=== PATIENT | female | born 1950 | race Caucasian/White ===

== ENCOUNTER 2020-04-04 14:45 | Inpatient (IN) | payer MEDICARE, SELFPAY ==
[2020-04-03 17:05] LABS: Absolute Neutrophil Count 3.6 X10^3/uL (2.0-7.7); Basophil# 0.02 X10^3/uL; Basophil% 0.3 % (0-1); Eosinophil# 0.23 X10^3/uL; Eosinophils% 3.6 % (0-5); Hematocrit 38.6 % (37-47); Hemoglobin 12.1 g/dL (12.0-15.0); Mean Corp Hgb Conc 31.3 g/dL (32-36); Mean Corpuscular Hgb 30.8 pg (27.0-32.0); Mean Corpuscular Volume 98.2 fL (81-99); Mean Platelet Vol. 8.3 fl (6.2-12.0); Monocyte# 0.61 X10^3/uL; Monocyte% 9.5 % (0-10); NRBC Flagged by Analyzer 0 % (0-5); Neutrophil # 3.57 X10^3/uL (2.7-7.7); Neutrophil % 55.3 % (47-70); Platelet Count 430 K/mm3 (150-450); RBC Distribution Width CV 12.8 % (11.6-14.6); RBC Distribution Width SD 46.1 fl (35.1-43.9); Red Blood Count 3.93 M/mm3 (4.2-5.4); White Blood Count 6.5 K/mm3 (4.4-11.0)
[2020-04-03 17:19] LABS: Erythrocyte Sedimentation Rate 34 mm/hr (0-30)
[2020-04-04] VITALS (12 sets, daily range): BP systolic 125–168; BP diastolic 69–96; PULSE 76–117; RESP 16; TEMP 36.3–37.5; O2SAT 94–100; BMI 27.9
[2020-04-04 11:11] LABS: Bedside Glucose 108 mg/dL (70-110)
[2020-04-04] MEDS: Lactated Ringers 1,000 ML 100 ML IV ×3 (11:27→15:35)
[2020-04-04] MEDS: Acetaminophen 500 MG Tablet 1000 MG PO ×2 (11:28→22:09)
[2020-04-04] MEDS: Gabapentin 600 MG Tablet PO (11:28)
[2020-04-04 12:13] LABS: Absolute Lymphocyte Count 1.58 X10^3/uL (0.83-4.51); Absolute Neutrophil Count 3.1 X10^3/uL (2.0-7.7); Basophil# 0.02 X10^3/uL; Basophil% 0.4 % (0-1); Eosinophil# 0.19 X10^3/uL; Eosinophils% 3.6 % (0-5); Hematocrit 38.9 % (37-47); Lymphocyte # 1.58 X10^3/ul (4.0); Lymphocyte % 29.9 % (19-41); Mean Corp Hgb Conc 30.8 g/dL (32-36); Mean Corpuscular Hgb 30.9 pg (27.0-32.0); Mean Corpuscular Volume 100.3 fL (81-99); Mean Platelet Vol. 8.3 fl (6.2-12.0); Monocyte# 0.41 X10^3/uL; Monocyte% 7.8 % (0-10); NRBC Flagged by Analyzer 0 % (0-5); Neutrophil # 3.07 X10^3/uL (2.7-7.7); Neutrophil % 57.9 % (47-70); Platelet Count 396 K/mm3 (150-450); RBC Distribution Width CV 12.9 % (11.6-14.6); RBC Distribution Width SD 47.4 fl (35.1-43.9); Red Blood Count 3.88 M/mm3 (4.2-5.4); White Blood Count 5.3 K/mm3 (4.4-11.0)
--- NOTE | 2020-04-04 12:13 | EKG12_ITS ---
Test Reason : PRE OP Blood Pressure : / mmHG Vent. Rate : 076 BPM Atrial Rate : 076 BPM P-R Int : 166 ms QRS Dur : 072 ms QT Int : 404 ms P-R-T Axes : 035 010 052 degrees QTc Int : 454 ms Sinus rhythm with Premature atrial complexes Otherwise normal ECG Confirmed by ELLEN CHAN, LEONID ([id number]), news copy editor MATT SORIA ([id number]) on 04/09/2020 10:28:34 AM Referred By: Vadim Chan Confirmed By:LEONID HUGHES MD
[2020-04-04 12:38] LABS: Anion Gap 4 (5-15); BUN 20 mg/dL (7-18); BUN/Creat Ratio 17.7 RATIO (10-20); Calcium,Total 9.3 mg/dL (8.5-10.1); Chloride 103 mmol/L (98-107); Creatinine, Serum 1.13 mg/dL (0.55-1.02); EST Glomerular Filtration Rate 51 mL/min (>60); Est Glom Filt Rate - Afr Amer 61 mL/min (>60); Estimated Creatinine Clearance 43.37 ml/min; Glucose 103 mg/dL (74-106); Magnesium 2.6 mg/dL (1.6-2.6); Potassium 3.6 mmol/L (3.5-5.1); Sodium Level 139 mmol/L (136-145)
[2020-04-04 12:57] LABS: Hemoglobin A1c 5.8 % (3.8-5.6)
[2020-04-04] MEDS: Cefazolin 2 GM in 0.9% Normal Saline 100 ML IV (13:34)
[2020-04-04] MEDS: Vancomycin IV 1,000 MG/200 ML BAG 200 MG IV (13:34)
--- NOTE | 2020-04-04 14:47 | RAD_ITS ---
STUDY: X-RAY - PELVIS AND LEFT HIP REASON FOR EXAM: Female, 69 years old. Post op hip revision. TECHNIQUE: 2 views of the pelvis and hip. COMPARISON: None. FINDINGS: There is a non-specific bowel gas pattern. Normal visualized soft tissue structures. Normal bilateral iliac wings, sacroiliac joints and visualized sacrum. Normal bilateral superior and inferior pubic rami. Normal pubic symphysis. Normal bilateral ischial tuberosities. Status post femoral head replacement. The standard hardware remains located without periprosthetic fracture. Normal postoperative soft tissue changes. RAD/Hip Min 2 Views (Portable) IMPRESSION: Status post left hip arthroplasty with no untoward bone, joint or hardware findings. Electronically Signed: Sachi Land MD at 16:32 EDT , Service support ,
--- NOTE | 2020-04-04 14:49 | PCM.OPRPT ---
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 Sinus tract debridement left hip Description of Surgical Findings:: Complete synovectomy was performed. There were 2 sinus tracts that were excised in 1 large ellipse. The superficial area communicated deep with a large seroma. small business consultant: Dayami Salmeron Type of Anesthesia:: General Anesthesiologist: Helio Johns Special Medications: TXA 1 g at incision, 1 g at closure. 2 g Ancef and 1 g vancomycin after cultures were obtained. Specimen's removed: 4 separate specimens were sent to microbiology. 3 deep from the joint and 1 superficial from the sinus tract. Estimated Blood Loss (mL): 300 mL Fluids Replaced: 1400 mL crystalloid Description of Procedure: Brief history/operative indications: 69-year-old female who had a hip hemiarthroplasty about 4 weeks ago. 4 days ago she noted increasing pain. Yesterday she presented the office with increased drainage which had purulence. Cultures were taken showing staph aureus. At that time based on the draining sinus we elected to bring her back to the operating room. Risks and benefits of this procedure were discussed the patient including but antibiotics, DVTs, PEs, nervous damage, the risk of anesthesia. Ultimately we discussed complete removal implants and placement of antibiotic spacer versus retained well fixed implants and removal of the femoral head with debridement of the sinus tract. At this time patient did wish to proceed with this procedure. Considering the timing of the symptoms and duration since surgery we agreed it is appropriate treatment plan. Procedure: On the date of procedure the patient's l hip was marked in the preoperative area. Patient was then taken back to the operating room where anesthesia assumed control of the C-spine and airway and administered anesthetic. Patient was transferred to the operating table and placed in the lateral decubitus position with the affected hip up. The patient was secured in the bed with the lateral positioners and leg lengths were checked. The L lower extremity was then prepped out in a sterile fashion using chlorhexidine while the surgeon scrubbed. Upon reentering the room the L lower extremity was draped in the standard orthopedic fashion and the incision was marked. A timeout was called and everyone agreed upon the side, the site, the procedure be performed, antibiotics given, and patient's identity. At this time incision was made through skin, subcutaneous tissue, and fat down to fascia. And incising the skin we did make an ellipse around the 2 sinus tracts. The sinus tracts were carefully dissected out. The initially seemed like they were tracking superficially however as we extended the incision it was very clearly tracked down to a large seroma which had breached the previous fascial repair. Once we had fully incised the fascia a Charley retractor was placed. The soft tissue previous repair was no longer stable. We had a direct view into the joint at this time. There was a large synovial lining area secondary to the seroma. This was carefully debrided using a Perez and rondure. This included the at risk skin edges. Synovial lined tissue from the sinus tract with subtenons tissue fat and fascia involved. We were careful to protect neurovascular structures. The synovium was was sent for culture a more superficial and a more deep specimen was used. Once the synovectomy was completed the retractors were then placed inside the capsule. And the remainder of the synovectomy was completed superiorly and inferiorly. We then dislocated the joint. A bone tamp was used to remove the femoral head. Once this was done we are able to complete the anterior synovectomy. The joint was explored. The membrane from within the femoral head component was taken and sent for culture as well. At this time the wound was copiously irrigated out 2 L of normal saline. We stopped after 2 L of normal saline and put a dilute Betadine solution in the wound for 3 minutes followed by a Irricept lavage followed another liter of normal saline. Once this completed the trunnion was exposed the previous head and neck were stable. Because of this we use the same size implants. They were opened on the back table trunnion was cleaned they were impacted into place. Once was done the hip was reduced. Stability was checked. Hip was stable 9 degrees flexion with 30 degrees internal rotation. There was also minimal shuck. At this time we commenced with closure. Closure was then done using #1 Vicryl to close the fascia using interrupted for the length of the fascia after re-creating a distinct fascial layer and then running a #1 Vicryl as well. In the deep fatty layer #1 Vicryl [id number] sutures were used. A 2-0 Vicryl interrupted sutures were used to close the subcutaneous skin. 2-0 nylon suture in an interrupted vertical mattress fashion followed by close approximation of the skin with a 3 oh VueLock suture were used for final skin closure. A sterile dressing was placed. Patient was awakened by anesthesia and transferred to the [facility]. Patient was then transferred to the PACU for recovery. Postoperative plan: We will consult infectious disease. Patient will be weightbearing as tolerated. 3 months of posterior hip precautions. Aspirin 81 mg twice daily for DVT prophylaxis. Grafts/Implants Used: Leslie Unitrax cobalt chromium femoral head 45 mm, -4 mm sleeve - Complications No intraoperative complications - Admit VTE Documentation VTE Present on Admission: No VTE Mechan Device Prophylaxis: SCD's, Thigh High JAYSON Hose VTE Pharm Prophylaxis ordered?: Yes
--- NOTE | 2020-04-04 15:19 | CON.PCM_ITS ---
Problem List (1) Prosthetic joint infection of left hip Status: Acute Reason for Consult: L hip PJI Consulted by: Dr. Chan History of Present Illness: The patient is a 69 year old F with L hip hemiarthroplasty about a month ago, had been doing fine until about 4-5 days ago, developed pain, swelling, and purulent/bloody drainage from L hip incision. Pain about 5/10, worse with walking. No fever. No recent abx. Saw ortho, wound cx taken, taken to OR today with Dr. Chan for debridement and revision. Now in PACU, sleepy, pain controlled. Full ROS performed and neg except as noted above. - Medical History Surgical History: reviewed Allergies/Adverse Reactions: Allergies No Known Allergies Allergy (Verified 04/04/20 10:40) Home Medications: Ambulatory Orders Medication Instructions Recorded Celecoxib [Celebrex] 200 mg PO BID 04/04/20 Diazepam 2 mg PO DAILY 04/04/20 Diazepam [Valium] 5 mg PO QHS 04/04/20 Duloxetine HCl 60 mg PO QHS 04/04/20 Famotidine 20 mg PO BID 04/04/20 Gabapentin 800 mg BID 04/04/20 Lubiprostone [Amitiza] 24 mcg PO BID PRN 04/04/20 Metformin HCl 500 mg PO DAILY 04/04/20 Omeprazole 40 mg DAILY 04/04/20 Zolpidem Tartrate [Ambien] 10 mg PO QHS 04/04/20 - Social History Tobacco Use: non-smoker Vital Signs Temp Pulse Resp BP Pulse Ox 99.5 F H 76 16 156/93 H 94 04/04/20 11:30 04/04/20 11:30 04/04/20 11:30 04/04/20 11:30 04/04/20 11:30 Oxygen Delivery Method Room Air Weight: 78.6 kg Body Mass Index (BMI) 27.9 Microbiology Past 72 Hours 04/03/20 16:23 Gram Stain - Final Wound - Hip Wound Culture - Preliminary Staphylococcus aureus Laboratory Tests Past 24 Hrs 04/03/20 04/03/20 04/04/20 16:23 16:23 12:00 WBC 6.5 RBC 3.93 L Hgb 12.1 Hct 38.6 MCV 98.2 MCH 30.8 MCHC 31.3 L RDW Std Deviation 46.1 H RDW Coeff of Safia 12.8 Plt Count 430 MPV 8.3 Immature Gran % (Auto) 0.300 Neut % (Auto) 55.3 Lymph % (Auto) 31.0 [place] % (Auto) 9.5 Eos % (Auto) 3.6 Baso % (Auto) 0.3 Absolute Neuts (auto) 3.6 Absolute Lymphs (auto) 2.00 Nucleated RBC % 0 ESR 34 H Sodium 139 Potassium 3.6 Chloride 103 Carbon Dioxide 32.0 Anion Gap 4 L BUN 20 H Creatinine 1.13 H Estim Creat Clear Calc 43.37 Est GFR (MDRD) Af Amer 61 Est GFR (MDRD) Non-Af 51 L BUN/Creatinine Ratio 17.7 Glucose 103 Hemoglobin A1c Calcium 9.3 Magnesium 2.6 C-React Prot Ext Range 5.00 H 04/04/20 04/04/20 12:00 12:00 WBC 5.3 RBC 3.88 L Hgb 12.0 Hct 38.9 MCV 100.3 H MCH 30.9 MCHC 30.8 L RDW Std Deviation 47.4 H RDW Coeff of Safia 12.9 Plt Count 396 MPV 8.3 Immature Gran % (Auto) 0.400 Neut % (Auto) 57.9 Lymph % (Auto) 29.9 [place] % (Auto) 7.8 Eos % (Auto) 3.6 Baso % (Auto) 0.4 Absolute Neuts (auto) 3.1 Absolute Lymphs (auto) 1.58 Nucleated RBC % 0 ESR Sodium Potassium Chloride Carbon Dioxide Anion Gap BUN Creatinine Estim Creat Clear Calc Est GFR (MDRD) Af Amer Est GFR (MDRD) Non-Af BUN/Creatinine Ratio Glucose Hemoglobin A1c 5.8 H Calcium Magnesium C-React Prot Ext Range - Other Studies Radiology: [] reviewed Other Studies: [] Route of nutrition/ use of supplements: [] Nutritional Intake: [] IV Site: [] Jacome Catheter: [] - Physical Exam General: Alert, Oriented x3, Cooperative, No apparent distress HEENT: Atraumatic, PERRLA, EOMI Neck: Supple, No Nodes Lungs: Clear to auscultation, Normal air movement Cardiovascular: Regular rate, Regular Rhythm, Murmur Abdomen: Soft, Non Tender, Non-Distended Extremities: No edema Skin: Incision - L hip bandaged IV Site: Peripheral, without redness Musculoskeletal: No Tenderness to Palpation of Joints or Extremities Neurological: Cranial nerves II-XII grossly intact - Assessment/Plan Antibiotics: [] Assessment/Plan: [] staph aureus L hip PJI - now s/p OR 03/05/[address] Chan for synovectomy and revision of femoral head component. Surg cx pending. Will cover with vanc/ceft riaxone for now. Plan will be for picc and discharge on iv abx. Likely will benefit from addition of rifampin prior to discharge for biofilm penetration. Will follow, thank you
--- NOTE | 2020-04-04 15:28 | PCM.RX.CS ---
Consult Pharmacy has been consulted to manage selected antiobiotic: Vancomycin Type of Consult: New start Suspected Infection: Skin/Soft tissue Prior Doses of Antibiotics Received/Current Regimen: Received 1gm iv preop. Labs: Sodium 139 mmol/L (136-145) 04/04/20 12:00 Potassium 3.6 mmol/L (3.5-5.1) 04/04/20 12:00 Chloride 103 mmol/L (98-107) 04/04/20 12:00 Carbon Dioxide 32.0 mmol/L (21.0-32.0) 04/04/20 12:00 Anion Gap 4 (5-15) L 04/04/20 12:00 BUN 20 mg/dL (7-18) H 04/04/20 12:00 Creatinine 1.13 mg/dL (0.55-1.02) H 04/04/20 12:00 Est GFR (MDRD) Af Amer 61 mL/min (>60) 04/04/20 12:00 Est GFR (MDRD) Non-Af 51 mL/min (>60) L 04/04/20 12:00 BUN/Creatinine Ratio 17.7 RATIO (-20) 04/04/20 12:00 Glucose 103 mg/dL (74-106) 04/04/20 12:00 Microbiology: Microbiology 04/03/20 16:23 Wound - Hip Gram Stain - Final 04/03/20 16:23 Wound - Hip Wound Culture - Preliminary Staphylococcus aureus Weight used for dosin.6 kg Estimated Creatinine Clearance: 43ml/min Goal Trough: 15-20 mcg/mL Pharmacy Plan for Drug Dosing: Will begin 500mg iv q12h per protocol. Trough level ordered for 04.06.20. Pharmacy Service will continue to monitor and adjust dosing as required. Follow-Up Labs: Trough Vancomycin - 04.06.20 @0030
[2020-04-04] MEDS: Scopolamine 1mg/72hr Patch 1 PATCH TD (15:36)
[2020-04-04 16:45] LABS: Bedside Glucose 167 mg/dL (70-110)
[2020-04-04] MEDS: proMETHazine 25 MG/ML Syringe 12.5 MG IM (17:30)
[2020-04-04] MEDS: 0.9% Saline Lock 10 ML Syringe IV (17:31)
[2020-04-04] MEDS: Aspirin 81 MG TAB.CHEW PO (17:37)
--- NOTE | 2020-04-04 18:01 | PN_ITS ---
<Luciano Geiger - Last Filed: 04/04/20 18:01> 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) Reason for Visit: post op left hip PJI debridement, revision hemiarthroplasty Subjective: This is a 69 yo female with pmhx of recent left hip hemiarthroplasty about a month prior hx osteoarthritis, anxiety, DMt2, who underwent a debridement and revision of the hemiarthroplasty as it has develoepd drainage and injection around the prosthesis. A culture from 04/03 shows 3+ Staph auereus. The patient tolerated the procedure well, since coming out of sedation has had some nausea. She was given zofran, phenergan, scopalamine patch and since has had resolution of the nausea. She is lethargic and groggy at this time but denies any nausea. No fever/chills. Minimal pain to the left hip. No SOB or cough. Vitals/I&O's: Vital Signs Temp Pulse Resp BP Pulse Ox 97.8 F 113 H 16 166/88 H 94 04/04/20 17:10 04/04/20 17:10 04/04/20 17:10 04/04/20 17:10 04/04/20 17:10 Oxygen Flow Rate (L/min) 2 Oxygen Delivery Method Nasal Cannula Weight: 173 lb 4.533 oz Body Mass Index (BMI) 27.9 Finger Stick Blood Glucose 167 Intake and Output for Last 24 Hours 04/02/20 04/03/20 04/04/20 23:59 23:59 23:59 Intake Total 2844.5 / 2844.5 Output Total 450 / 450 Balance 2394.5 / 2394.5 General: Alert, Oriented x3, Cooperative, Lethargic HEENT: Atraumatic, PERRLA, EOMI, Normocephalic Neck: Supple, No JVD, Negative Carotid Bruits Lungs: Clear to auscultation, Normal air movement Cardiovascular: Regular rate, No murmurs Abdomen: Bowel Sounds Present, Soft, Non Tender Extremities: No edema, Capillary Refill Less than 3 Seconds Skin: No rashes, No breakdown Musculoskeletal: No Tenderness to Palpation of Joints or Extremities, - - distal pms intact. Neurological: Cranial nerves II-XII grossly intact Psych/Mental Status: Normal Affect, Appropriate, Alert and oriented to time, place, person, mood and affect Microbiology Past 72 Hours 04/03/20 16:23 Wound - Hip Gram Stain - Final 04/03/20 16:23 Wound - Hip Wound Culture - Preliminary Staphylococcus aureus Laboratory Results 04/03/20 16:23: C-React Prot Ext Range 5.00 H 04/04/20 11:06: POC Glucose 108 04/04/20 12:00: Sodium 139, Potassium 3.6, Chloride 103, Carbon Dioxide 32.0, Anion Gap 4 L, BUN 20 H, Creatinine 1.13 H, Estim Creat Clear Calc 43.37, Est GFR (MDRD) Af Amer 61, Est GFR (MDRD) Non-Af 51 L, BUN/Creatinine Ratio 17.7, Glucose 103, Calcium 9.3, Magnesium 2.6 04/04/20 12:00: Hemoglobin A1c 5.8 H 04/04/20 12:00: WBC 5.3, RBC 3.88 L, Hgb 12.0, Hct 38.9, MCV 100.3 H, MCH 30.9, MCHC 30.8 L, RDW Std Deviation 47.4 H, RDW Coeff of Safia 12.9, Plt Count 396, MPV 8.3, Immature Gran % (Auto) 0.400, Neut % (Auto) 57.9, Lymph % (Auto) 29.9, [place] % (Auto) 7.8, Eos % (Auto) 3.6, Baso % (Auto) 0.4, Absolute Neuts (auto) 3.1, Absolute Lymphs (auto) 1.58, Nucleated RBC % 0 04/04/20 16:40: POC Glucose 167 H Current Medications Acetaminophen (Tylenol) 1,000 mg PO Q8 [facility] Aspirin (Aspirin, Baby) 81 mg PO BIDCM [facility] Last Admin: 04/04/20 17:37 Dose: 81 mg Documented by: Enteral Nutritional Formula (Ensure Surgery) 237 ml PO TIDCM [facility] Last Admin: 04/04/20 17:33 Dose: Not Given Documented by: Famotidine (Pepcid) 20 mg PO DAILY [facility] Lactated Ringer's () 1,000 mls @ 100 mls/hr IV .Q10H [facility] Last Infusion: 04/04/20 17:41 Dose: 0 mls/hr Documented by: Vancomycin IV Pharmacy to Dose (1 ea/ Sodium Chloride) 500 mls @ 250 mls/hr IV PRN PRN; Protocol PRN Reason: Rx to Dose Ceftriaxone Sodium 2 gm/ (Sodium Chloride) 50 mls @ 100 mls/hr IV Q24 [facility] Last Admin: 04/04/20 17:35 Dose: 100 mls/hr Documented by: Vancomycin HCl () 500 mg in 100 mls @ 100 mls/hr IV Q12H [facility] Sodium Chloride () 250 mls @ 15 mls/hr IV .[id number] PRN PRN Reason: Saline Flush Sodium Chloride () 250 mls @ 15 mls/hr IV .[id number] PRN PRN Reason: Additional IVPB Infusion Influenza Virus Vaccine Quadrival (Flucelvax /Fluzone ) 0.5 ml IM .ONCE ONE Stop: 04/05/20 10:01 Insulin Human Lispro (Humalog Kwikpen (Bkc)) 1 - 6 unit SC Q4H PRN PRN; Protocol PRN Reason: BG>/= 180, SEE PROTOCOL Morphine Sulfate () 2 - 4 mg IV Q2H PRN PRN PRN Reason: Pain Score 4-10/10 Morphine Sulfate () 2 - 4 mg IV Q2H PRN PRN PRN Reason: PAIN 4-10/10 Ondansetron HCl (Zofran) 4 mg IV Q8H PRN PRN PRN Reason: NAUSEA Oxycodone HCl (Oxyir) 5 - 10 mg PO Q4H PRN PRN PRN Reason: Pain Score 4-10/10 Promethazine HCl (Phenergan) 12.5 mg IM Q6H PRN PRN; Protocol PRN Reason: NAUSEA/VOMITING Last Admin: 04/04/20 17:30 Dose: 12.5 mg Documented by: Senna/Docusate Sodium (Senokot-S, Taylor-Colace) 2 tablet PO BID [facility] Sodium Chloride () 10 - 40 ml IV UD PRN PRN Reason: SALINE FLUSH Last Admin: 04/04/20 17:31 Dose: 10 ml Documented by: STROKE Vital Signs/Narrative: Vital Signs Temp Pulse Resp BP Pulse Ox 04/04/20 17:10 97.8 F 113 H 16 166/88 H 94 04/04/20 16:15 97.4 F L 99 16 134/91 H 98 04/04/20 16:00 107 H 16 155/92 H 98 04/04/20 15:45 110 H 16 136/84 H 100 04/04/20 15:30 108 H 16 153/96 H 100 04/04/20 15:15 106 H 16 168/87 H 100 04/04/20 15:00 117 H 16 168/92 H 100 04/04/20 14:57 97.4 F L 117 H 16 168/87 H 100 Medical Necessity - Tobacco Use Smoking Status: Never smoker Assessment/Plan All Active Problems 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 PJI s/p debridement and hemiarthroplasty revision (left hip) - POD#0. Ortho is Dr. Chan. Dr. Perez is consulted for infection management. Pt had post op nausea which is now resolved. CBC/BMP in AM. IV abx regimen currently includes Vancomycin and Rocephin. Per ID pt will need PICC at DC and may be started on rifampin for biofilm penetrance. 2. DMt2 - SSI, hold metformin. last A1C 5.8, well controlled for her age. 3. Suspect CKDIII - per prior labs recent BUN 20 , Cr 1.13, GFR 51 CrCl 43. BMP in AM. DVT ppx: asa BID per ortho This patient was seen by Luciano Geiger PA-C under the supervision of Dr. Benitez. <Marely Benitez - Last Filed: 04/04/20 21:36> Vitals/I&O's: Vital Signs Temp Pulse Resp BP Pulse Ox 97.8 F 89 16 125/69 H 97 04/04/20 18:41 04/04/20 18:41 04/04/20 19:10 04/04/20 18:41 04/04/20 19:10 Oxygen Flow Rate (L/min) 4 Oxygen Delivery Method Nasal Cannula Weight: 78.6 kg Body Mass Index (BMI) 27.9 Finger Stick Blood Glucose 167 Intake and Output for Last 24 Hours 04/02/20 04/03/20 04/04/20 23:59 23:59 23:59 Intake Total 2894.5 / 2894.5 Output Total 450 / 450 Balance 2444.5 / 2444.5 Microbiology Past 72 Hours 04/03/20 16:23 Wound - Hip Gram Stain - Final 04/03/20 16:23 Wound - Hip Wound Culture - Preliminary Staphylococcus aureus Laboratory Results 04/03/20 16:23: C-React Prot Ext Range 5.00 H 04/04/20 11:06: POC Glucose 108 04/04/20 12:00: Sodium 139, Potassium 3.6, Chloride 103, Carbon Dioxide 32.0, Anion Gap 4 L, BUN 20 H, Creatinine 1.13 H, Estim Creat Clear Calc 43.37, Est GFR (MDRD) Af Amer 61, Est GFR (MDRD) Non-Af 51 L, BUN/Creatinine Ratio 17.7, Glucose 103, Calcium 9.3, Magnesium 2.6 04/04/20 12:00: Hemoglobin A1c 5.8 H 04/04/20 12:00: WBC 5.3, RBC 3.88 L, Hgb 12.0, Hct 38.9, MCV 100.3 H, MCH 30.9, MCHC 30.8 L, RDW Std Deviation 47.4 H, RDW Coeff of Safia 12.9, Plt Count 396, MPV 8.3, Immature Gran % (Auto) 0.400, Neut % (Auto) 57.9, Lymph % (Auto) 29.9, [place] % (Auto) 7.8, Eos % (Auto) 3.6, Baso % (Auto) 0.4, Absolute Neuts (auto) 3.1, Absolute Lymphs (auto) 1.58, Nucleated RBC % 0 04/04/20 16:40: POC Glucose 167 H Current Medications Acetaminophen (Tylenol) 1,000 mg PO Q8 [facility] Aspirin (Aspirin, Baby) 81 mg PO BIDCM [facility] Last Admin: 04/04/20 17:37 Dose: 81 mg Documented by: Dextrose (D50w Syringe) 0 gm IV X1 PRN; Protocol PRN Reason: Hypoglycemia Enteral Nutritional Formula (Ensure Surgery) 237 ml PO TIDCM [facility] Last Admin: 04/04/20 17:33 Dose: Not Given Documented by: Famotidine (Pepcid) 20 mg PO DAILY [facility] Glucagon () 1 mg IM .X1 PRN PRN Reason: Hypoglycemia Lactated Ringer's () 1,000 mls @ 100 mls/hr IV .Q10H [facility] Last Infusion: 04/04/20 18:07 Dose: 100 mls/hr Documented by: Vancomycin IV Pharmacy to Dose (1 ea/ Sodium Chloride) 500 mls @ 250 mls/hr IV PRN PRN; Protocol PRN Reason: Rx to Dose Ceftriaxone Sodium 2 gm/ (Sodium Chloride) 50 mls @ 100 mls/hr IV Q24 [facility] Last Infusion: 04/04/20 18:07 Dose: Infused Documented by: Vancomycin HCl () 500 mg in 100 mls @ 100 mls/hr IV Q12H [facility] Sodium Chloride () 250 mls @ 15 mls/hr IV .[id number] PRN PRN Reason: Saline Flush Sodium Chloride () 250 mls @ 15 mls/hr IV .[id number] PRN PRN Reason: Additional IVPB Infusion Influenza Virus Vaccine Quadrival (Flucelvax /Fluzone ) 0.5 ml IM .ONCE ONE Stop: 04/05/20 10:01 Insulin Human Lispro (Humalog Kwikpen (Bkc)) 0 unit SC ACHS [facility]; Protocol Morphine Sulfate () 2 - 4 mg IV Q2H PRN PRN PRN Reason: Pain Score 4-10/10 Morphine Sulfate () 2 - 4 mg IV Q2H PRN PRN PRN Reason: PAIN 4-10/10 Ondansetron HCl (Zofran) 4 mg IV Q8H PRN PRN PRN Reason: NAUSEA Oxycodone HCl (Oxyir) 5 - 10 mg PO Q4H PRN PRN PRN Reason: Pain Score 4-10/10 Promethazine HCl (Phenergan) 12.5 mg IM Q6H PRN PRN; Protocol PRN Reason: NAUSEA/VOMITING Last Admin: 04/04/20 17:30 Dose: 12.5 mg Documented by: Senna/Docusate Sodium (Senokot-S, Taylor-Colace) 2 tablet PO BID [facility] Sodium Chloride () 10 - 40 ml IV UD PRN PRN Reason: SALINE FLUSH Last Admin: 04/04/20 17:31 Dose: 10 ml Documented by: STROKE Vital Signs/Narrative: Vital Signs Temp Pulse Resp BP Pulse Ox 04/04/20 19:10 16 97 04/04/20 18:41 97.8 F 89 16 125/69 H 95 Assessment/Plan This patient was seen in conjunction with ARIANA Dwyer. I have independently interviewed and examined the patient and reviewed pertinent historical, laboratory, and other data. Please refer to ARIANA Dwyer note for his patient's presentation, findings, and recommendations. I have reviewed and his note and concur with his documentation 69-year-old female has medical history of osteoarthritis status post left hip hemiarthroplasty a month ago, type II DM, anxiety who developed drainage from the left hip surgical site. Blood cultures done on 04/03/20 showed staph aureus/3. Patient was admitted for elective I&D and revision of the hemiarthroplasty. Infectious disease had been consulted and have started patient on vancomycin and ceftriaxone. Patient was seen in the immediate postop period. Her pain is controlled. She had episodes of vomiting after surgery. She has been medicated. She denied any chest pain or dizziness or palpitations or fever. Physical Exam: Gen: Appears comfortable, not pale, not jaundiced CVS:HS I +II, regular, no murmurs RESP: Clinically clear to auscultation GI: BS present and normal, soft, nontender, no palpable organs EXT:No edema, intact dressing and ice pack over the left hip ASSESSMENT: 1. Postop day #0 status post I&D, debridement and revision of left hip hemiarthroplasty 2. Acute prosthetic joint infection 3. Type II DM 4. Possible CKD stage III 5. Osteoarthritis Plan: Continue on IV antibiotics, Follow-up with intraoperative wound cultures Wound care, PT and OT per Primary orthopedics team Continue with aspirin for DVT prophylaxis per orthopedic team Inpatient E&M: [id number] Subs Hosp L2
[2020-04-04] MEDS: Senna/Docusate Sodium 1 Tablet 2 TABLET PO (22:09)
[2020-04-04 22:55] LABS: Bedside Glucose 177 mg/dL (70-110)
[2020-04-05] MEDS: Vancomycin IV 500 MG/100 ML BAG 100 MG IV ×2 (01:47→13:21)
[2020-04-05 04:00] VITALS: BP 117/71; PULSE 82; RESP 16; TEMP 37; O2SAT 98
[2020-04-05] MEDS: Acetaminophen 500 MG Tablet 1000 MG PO ×3 (05:26→22:31)
[2020-04-05 06:22] LABS: Hematocrit 32.1 % (37-47); Hemoglobin 10.1 g/dL (12.0-15.0); Mean Corp Hgb Conc 31.5 g/dL (32-36); Mean Corpuscular Hgb 31.7 pg (27.0-32.0); Mean Corpuscular Volume 100.6 fL (81-99); Mean Platelet Vol. 8.4 fl (6.2-12.0); Platelet Count 355 K/mm3 (150-450); RBC Distribution Width CV 12.7 % (11.6-14.6); RBC Distribution Width SD 46.8 fl (35.1-43.9); Red Blood Count 3.19 M/mm3 (4.2-5.4); White Blood Count 8.2 K/mm3 (4.4-11.0)
[2020-04-05] MEDS: Insulin Lispro 100 UNIT/ML INSULN.PEN SC ×2 (06:33→11:31)
[2020-04-05 06:46] LABS: Anion Gap 3 (5-15); BUN 21 mg/dL (7-18); BUN/Creat Ratio 19.8 RATIO (10-20); Calcium,Total 8.7 mg/dL (8.5-10.1); Chloride 104 mmol/L (98-107); Creatinine, Serum 1.06 mg/dL (0.55-1.02); EST Glomerular Filtration Rate 54 mL/min (>60); Est Glom Filt Rate - Afr Amer 66 mL/min (>60); Estimated Creatinine Clearance 46.23 ml/min; Glucose 137 mg/dL (74-106); Potassium 4.3 mmol/L (3.5-5.1); Sodium Level 139 mmol/L (136-145)
[2020-04-05 06:51] LABS: Bedside Glucose 167 mg/dL (70-110)
[2020-04-05 07:00] VITALS: O2SAT 92
[2020-04-05 10:17] VITALS: BP 112/73; PULSE 77; RESP 18; TEMP 36.7; O2SAT 100
[2020-04-05] MEDS: Ensure Surgery 237 ML LIQUID PO ×3 (10:24→16:31)
[2020-04-05] MEDS: Senna/Docusate Sodium 1 Tablet 2 TABLET PO ×2 (10:24→22:31)
[2020-04-05] MEDS: Aspirin 81 MG TAB.CHEW PO ×2 (10:25→16:30)
[2020-04-05] MEDS: Famotidine 20 MG Tablet PO (10:25)
[2020-04-05] MEDS: oxyCODONE 5 MG Tablet PO ×2 (10:39→19:22)
[2020-04-05] MEDS: 0.9% Saline Lock 10 ML Syringe IV ×2 (10:40→13:28)
--- NOTE | 2020-04-05 11:05 | CASEMGMT ---
GUALBERTO RAMSEY Face to Face with patient for initial transition planning/care coordination assessment. RN CM introduced self and role at [facility]. Patient sitting in chair, alert and oriented. Patient willing to participate in assessment and is able to answer all questions appropriately. Care providers, pharmacy, and demographics verified. Patient wishes to discharge home, with HHC again through [facility]. Patient states she has no further needs or concerns at this time. CM to follow for discharge planning needs that may arise. PCP: [facility] Specialists: Dustin Sheikh Pharmacy: [facility] Insurance: [facility] Prescription Benefit: yes Living Will/HPOA: none LNOK: Living Arrangements: Patient lives with in a 1 story home with 1 step to enter the home. Patient states she is independent at home. Transportation: self/ DME/HHC: Patient states she has shower chair, cane, walker, rollator, and grab bars at home. Patient states she was getting HHC for therapy through [facility]. Will monitor for need for IV ATB at discharge pending infectious disease consult. Disposition Plan: Patient to discharge home with HHC, family support, and follow-up plans in place. Lolly MURPHY, RN, CM
--- NOTE | 2020-04-05 11:26 | PCM.PN.HOSP ---
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 Nausea resolved. Pt much more alert today. No SOB/cough. Pt resting in chair at bedside NAD. Vitals/I&O's: Vital Signs Temp Pulse Resp BP Pulse Ox 98.1 F 77 18 112/73 100 04/05/20 10:17 04/05/20 10:17 04/05/20 10:17 04/05/20 10:17 04/05/20 10:17 Oxygen Flow Rate (L/min) 2 Oxygen Delivery Method Nasal Cannula Weight: 173 lb 4.533 oz Body Mass Index (BMI) 27.9 Finger Stick Blood Glucose 167 Intake and Output for Last 24 Hours 04/03/20 04/04/20 04/05/20 23:59 23:59 23:59 Intake Total 2994.5 / 2994.5 1090.00 / 1090.00 Output Total 950 / 950 400 / 400 Balance 2044.5 / 2044.5 690.00 / 690.00 General: Alert, Oriented x3, Cooperative HEENT: Atraumatic, PERRLA, EOMI, Normocephalic Neck: Supple, No JVD, Negative Carotid Bruits Lungs: Clear to auscultation, Normal air movement Cardiovascular: Regular rate, No murmurs Abdomen: Bowel Sounds Present, Soft, Non Tender Extremities: No edema, Capillary Refill Less than 3 Seconds Skin: No rashes, No breakdown Musculoskeletal: No Tenderness to Palpation of Joints or Extremities Neurological: Cranial nerves II-XII grossly intact Psych/Mental Status: Normal Affect, Appropriate, Alert and oriented to time, place, person, mood and affect Microbiology Past 72 Hours 04/04/20 Unknown Tissue - Hip Wound Culture - Preliminary No growth-Final to follow 04/04/20 Unknown Tissue - Hip Wound Culture - Preliminary No growth-Final to follow 04/04/20 Unknown Tissue - Hip Wound Culture - Preliminary Gram positive organism 04/04/20 Unknown Tissue - Hip Wound Culture - Preliminary Staphylococcus aureus 04/03/20 16:23 Wound - Hip Gram Stain - Final 04/03/20 16:23 Wound - Hip Wound Culture - Final Staphylococcus aureus Laboratory Results 04/03/20 16:23: C-React Prot Ext Range 5.00 H 04/04/20 12:00: Sodium 139, Potassium 3.6, Chloride 103, Carbon Dioxide 32.0, Anion Gap 4 L, BUN 20 H, Creatinine 1.13 H, Estim Creat Clear Calc 43.37, Est GFR (MDRD) Af Amer 61, Est GFR (MDRD) Non-Af 51 L, BUN/Creatinine Ratio 17.7, Glucose 103, Calcium 9.3, Magnesium 2.6 04/04/20 12:00: Hemoglobin A1c 5.8 H 04/04/20 12:00: WBC 5.3, RBC 3.88 L, Hgb 12.0, Hct 38.9, MCV 100.3 H, MCH 30.9, MCHC 30.8 L, RDW Std Deviation 47.4 H, RDW Coeff of Safia 12.9, Plt Count 396, MPV 8.3, Immature Gran % (Auto) 0.400, Neut % (Auto) 57.9, Lymph % (Auto) 29.9, [place] % (Auto) 7.8, Eos % (Auto) 3.6, Baso % (Auto) 0.4, Absolute Neuts (auto) 3.1, Absolute Lymphs (auto) 1.58, Nucleated RBC % 0 04/04/20 16:40: POC Glucose 167 H 04/04/20 22:01: POC Glucose 177 H 04/05/20 05:52: WBC 8.2, RBC 3.19 L, Hgb 10.1 L, Hct 32.1 L, MCV 100.6 H, MCH 31.7, MCHC 31.5 L, RDW Std Deviation 46.8 H, RDW Coeff of Safia 12.7, Plt Count 355, MPV 8.4 04/05/20 05:52: Sodium 139, Potassium 4.3, Chloride 104, Carbon Dioxide 32.0, Anion Gap 3 L, BUN 21 H, Creatinine 1.06 H, Estim Creat Clear Calc 46.23, Est GFR (MDRD) Af Amer 66, Est GFR (MDRD) Non-Af 54 L, BUN/Creatinine Ratio 19.8, Glucose 137 H, Calcium 8.7 04/05/20 06:27: POC Glucose 167 H Current Medications Acetaminophen (Tylenol) 1,000 mg PO Q8 [facility] Last Admin: 04/05/20 05:26 Dose: 1,000 mg Documented by: Aspirin (Aspirin, Baby) 81 mg PO BIDCM [facility] Last Admin: 04/05/20 10:25 Dose: 81 mg Documented by: Dextrose (D50w Syringe) 0 gm IV X1 PRN; Protocol PRN Reason: Hypoglycemia Enteral Nutritional Formula (Ensure Surgery) 237 ml PO TIDCM [facility] Last Admin: 04/05/20 10:24 Dose: 237 ml Documented by: Famotidine (Pepcid) 20 mg PO DAILY [facility] Last Admin: 04/05/20 10:25 Dose: 20 mg Documented by: Glucagon () 1 mg IM .X1 PRN PRN Reason: Hypoglycemia Vancomycin IV Pharmacy to Dose (1 ea/ Sodium Chloride) 500 mls @ 250 mls/hr IV PRN PRN; Protocol PRN Reason: Rx to Dose Ceftriaxone Sodium 2 gm/ (Sodium Chloride) 50 mls @ 100 mls/hr IV Q24 [facility] Last Admin: 04/05/20 10:25 Dose: 100 mls/hr Documented by: Vancomycin HCl () 500 mg in 100 mls @ 100 mls/hr IV Q12H [facility] Last Infusion: 04/05/20 02:47 Dose: Infused Documented by: Sodium Chloride () 250 mls @ 15 mls/hr IV .[id number] PRN PRN Reason: Saline Flush Sodium Chloride () 250 mls @ 15 mls/hr IV .[id number] PRN PRN Reason: Additional IVPB Infusion Insulin Human Lispro (Humalog Kwikpen (Bkc)) 0 unit SC ACHS [facility]; Protocol Last Admin: 04/05/20 06:33 Dose: 1 units Documented by: Morphine Sulfate () 2 - 4 mg IV Q2H PRN PRN PRN Reason: Pain Score 4-10/10 Morphine Sulfate () 2 - 4 mg IV Q2H PRN PRN PRN Reason: PAIN 4-10/10 Ondansetron HCl (Zofran) 4 mg IV Q8H PRN PRN PRN Reason: NAUSEA Oxycodone HCl (Oxyir) 5 - 10 mg PO Q4H PRN PRN PRN Reason: Pain Score 4-10/10 Last Admin: 04/05/20 10:39 Dose: 5 mg Documented by: Promethazine HCl (Phenergan) 12.5 mg IM Q6H PRN PRN; Protocol PRN Reason: NAUSEA/VOMITING Last Admin: 04/04/20 17:30 Dose: 12.5 mg Documented by: Senna/Docusate Sodium (Senokot-S, Taylor-Colace) 2 tablet PO BID [facility] Last Admin: 04/05/20 10:24 Dose: 2 tablet Documented by: Sodium Chloride () 10 - 40 ml IV UD PRN PRN Reason: SALINE FLUSH Last Admin: 04/05/20 10:40 Dose: 10 ml Documented by: STROKE Vital Signs/Narrative: Vital Signs Temp Pulse Resp BP Pulse Ox 04/05/20 10:17 98.1 F 77 18 112/73 100 Medical Necessity - Tobacco Use Smoking Status: Never smoker Assessment/Plan All Active Problems 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 Ortho is Dr. Chan. Dr. Perez is consulted for infection management. Pt had post op nausea which is now resolved. CBC/BMP in AM. IV abx regimen currently includes Vancomycin and Rocephin. Per ID pt will need PICC at DC and may be started on rifampin for biofilm penetrance. -No fever/leukocytosis. -Prior Staph cultures showing pansensitive. Repeat surgical cxs pending. 2. DMt2 - SSI, hold metformin. last A1C 5.8, well controlled for her age. 3. Suspect CKDIII - renal function stable. per prior labs recent BUN 20 , Cr 1.13, GFR 51 CrCl 43. DVT ppx: asa BID per ortho This patient was seen by Luciano Geiger PA-C under the supervision of Dr. Fabian <Jamie Fabian - Last Filed: 04/05/20 11:55> Vitals/I&O's: Vital Signs Temp Pulse Resp BP Pulse Ox 36.7 C 77 18 112/73 100 04/05/20 10:17 04/05/20 10:17 04/05/20 10:17 04/05/20 10:17 04/05/20 10:17 Oxygen Flow Rate (L/min) 2 Oxygen Delivery Method Nasal Cannula Weight: 78.6 kg Body Mass Index (BMI) 27.9 Finger Stick Blood Glucose 167 Intake and Output for Last 24 Hours 04/03/20 04/04/20 04/05/20 23:59 23:59 23:59 Intake Total 2994.5 / 2994.5 1140.00 / 1140.00 Output Total 950 / 950 400 / 400 Balance 2044.5 / 2044.5 740.00 / 740.00 General: Alert, Cooperative HEENT: Atraumatic, Normocephalic Lungs: Clear to auscultation, Normal air movement Cardiovascular: Regular rate, No murmurs Abdomen: Bowel Sounds Present, Soft, Non Tender Extremities: No edema, Capillary Refill Less than 3 Seconds Psych/Mental Status: Normal Affect, Appropriate Microbiology Past 72 Hours 04/04/20 Unknown Tissue - Hip Wound Culture - Preliminary No growth-Final to follow 04/04/20 Unknown Tissue - Hip Wound Culture - Preliminary No growth-Final to follow 04/04/20 Unknown Tissue - Hip Wound Culture - Preliminary Gram positive organism 04/04/20 Unknown Tissue - Hip Wound Culture - Preliminary Staphylococcus aureus 04/03/20 16:23 Wound - Hip Gram Stain - Final 04/03/20 16:23 Wound - Hip Wound Culture - Final Staphylococcus aureus Laboratory Results 04/03/20 16:23: C-React Prot Ext Range 5.00 H 04/04/20 12:00: Sodium 139, Potassium 3.6, Chloride 103, Carbon Dioxide 32.0, Anion Gap 4 L, BUN 20 H, Creatinine 1.13 H, Estim Creat Clear Calc 43.37, Est GFR (MDRD) Af Amer 61, Est GFR (MDRD) Non-Af 51 L, BUN/Creatinine Ratio 17.7, Glucose 103, Calcium 9.3, Magnesium 2.6 04/04/20 12:00: Hemoglobin A1c 5.8 H 04/04/20 12:00: WBC 5.3, RBC 3.88 L, Hgb 12.0, Hct 38.9, MCV 100.3 H, MCH 30.9, MCHC 30.8 L, RDW Std Deviation 47.4 H, RDW Coeff of Safia 12.9, Plt Count 396, MPV 8.3, Immature Gran % (Auto) 0.400, Neut % (Auto) 57.9, Lymph % (Auto) 29.9, [place] % (Auto) 7.8, Eos % (Auto) 3.6, Baso % (Auto) 0.4, Absolute Neuts (auto) 3.1, Absolute Lymphs (auto) 1.58, Nucleated RBC % 0 04/04/20 16:40: POC Glucose 167 H 04/04/20 22:01: POC Glucose 177 H 04/05/20 05:52: WBC 8.2, RBC 3.19 L, Hgb 10.1 L, Hct 32.1 L, MCV 100.6 H, MCH 31.7, MCHC 31.5 L, RDW Std Deviation 46.8 H, RDW Coeff of Safia 12.7, Plt Count 355, MPV 8.4 04/05/20 05:52: Sodium 139, Potassium 4.3, Chloride 104, Carbon Dioxide 32.0, Anion Gap 3 L, BUN 21 H, Creatinine 1.06 H, Estim Creat Clear Calc 46.23, Est GFR (MDRD) Af Amer 66, Est GFR (MDRD) Non-Af 54 L, BUN/Creatinine Ratio 19.8, Glucose 137 H, Calcium 8.7 04/05/20 06:27: POC Glucose 167 H Current Medications Acetaminophen (Tylenol) 1,000 mg PO Q8 [facility] Last Admin: 04/05/20 05:26 Dose: 1,000 mg Documented by: Aspirin (Aspirin, Baby) 81 mg PO BIDCM [facility] Last Admin: 04/05/20 10:25 Dose: 81 mg Documented by: Dextrose (D50w Syringe) 0 gm IV X1 PRN; Protocol PRN Reason: Hypoglycemia Enteral Nutritional Formula (Ensure Surgery) 237 ml PO TIDCM [facility] Last Admin: 04/05/20 10:24 Dose: 237 ml Documented by: Famotidine (Pepcid) 20 mg PO DAILY [facility] Last Admin: 04/05/20 10:25 Dose: 20 mg Documented by: Glucagon () 1 mg IM .X1 PRN PRN Reason: Hypoglycemia Vancomycin IV Pharmacy to Dose (1 ea/ Sodium Chloride) 500 mls @ 250 mls/hr IV PRN PRN; Protocol PRN Reason: Rx to Dose Ceftriaxone Sodium 2 gm/ (Sodium Chloride) 50 mls @ 100 mls/hr IV Q24 [facility] Last Infusion: 04/05/20 10:55 Dose: Infused Documented by: Vancomycin HCl () 500 mg in 100 mls @ 100 mls/hr IV Q12H [facility] Last Infusion: 04/05/20 02:47 Dose: Infused Documented by: Sodium Chloride () 250 mls @ 15 mls/hr IV .[id number] PRN PRN Reason: Saline Flush Last Admin: 04/05/20 10:55 Dose: 15 mls/hr Documented by: Sodium Chloride () 250 mls @ 15 mls/hr IV .[id number] PRN PRN Reason: Additional IVPB Infusion Insulin Human Lispro (Humalog Kwikpen (Bkc)) 0 unit SC ACHS [facility]; Protocol Last Admin: 04/05/20 11:31 Dose: 1 units Documented by: Morphine Sulfate () 2 - 4 mg IV Q2H PRN PRN PRN Reason: Pain Score 4-10/10 Morphine Sulfate () 2 - 4 mg IV Q2H PRN PRN PRN Reason: PAIN 4-10/10 Ondansetron HCl (Zofran) 4 mg IV Q8H PRN PRN PRN Reason: NAUSEA Oxycodone HCl (Oxyir) 5 - 10 mg PO Q4H PRN PRN PRN Reason: Pain Score 4-10/10 Last Admin: 04/05/20 10:39 Dose: 5 mg Documented by: Promethazine HCl (Phenergan) 12.5 mg IM Q6H PRN PRN; Protocol PRN Reason: NAUSEA/VOMITING Last Admin: 04/04/20 17:30 Dose: 12.5 mg Documented by: Senna/Docusate Sodium (Senokot-S, Taylor-Colace) 2 tablet PO BID [facility] Last Admin: 04/05/20 10:24 Dose: 2 tablet Documented by: Sodium Chloride () 10 - 40 ml IV UD PRN PRN Reason: SALINE FLUSH Last Admin: 04/05/20 10:40 Dose: 10 ml Documented by: STROKE Vital Signs/Narrative: Vital Signs Temp Pulse Resp BP Pulse Ox 04/05/20 10:17 36.7 C 77 18 112/73 100 Assessment/Plan Patient seen and examined independently. Data reviewed. I agree with the above note by the physician licensed loan officer assistant. 1. Prosthetic joint infection: Status post debridements. Follow-up cultures. Infectious disease following. Currently on vancomycin and ceftriaxone. Discussed with the patient that ultimately will have to wait on the culture results and then insurance approval for likely long-term IV antibiotics. Inpatient E&M: [id number] Subs Hosp L2
[2020-04-05 11:50] LABS: Bedside Glucose 197 mg/dL (70-110)
--- NOTE | 2020-04-05 13:36 | PN.ORTHO_ITS ---
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 Breathing at 93% with 2 L nasal cannula. Reports minimal pain. No fevers overnight. Initial culture showing pansensitive staph. Gram-positive organism with 1 deep culture with staph positive for the sinus tract cultures. Objective: Left hip postop radiograph show stable well aligned left hip hemiarthroplasty. - Physical Exam Vitals/I&O's: Vital Signs Temp Pulse Resp BP Pulse Ox 98.1 F 77 18 112/73 100 04/05/20 10:17 04/05/20 10:17 04/05/20 10:17 04/05/20 10:17 04/05/20 10:17 Oxygen Flow Rate (L/min) 2 Oxygen Delivery Method Nasal Cannula Weight: 173 lb 4.533 oz Body Mass Index (BMI) 27.9 Finger Stick Blood Glucose 167 Intake and Output for Last 24 Hours 04/03/20 04/04/20 04/05/20 23:59 23:59 23:59 Intake Total 2994.5 / 2994.5 1195.67 / 1195.67 Output Total 950 / 950 400 / 400 Balance 2044.5 / 2044.5 795.67 / 795.67 General: Alert, Oriented x3, Cooperative HEENT: Atraumatic Neck: No JVD Extremities: - - LLE: Dressing is clean dry and intact Sensations intact to light touch saphenous, sural, superficial peroneal, deep peroneal, and tibial distributions Motors intact EHL, DF, PF calves are soft and supple Microbiology Past 72 Hours 04/04/20 Unknown Tissue - Hip Wound Culture - Preliminary No growth-Final to follow 04/04/20 Unknown Tissue - Hip Wound Culture - Preliminary No growth-Final to follow 04/04/20 Unknown Tissue - Hip Wound Culture - Preliminary Gram positive organism 04/04/20 Unknown Tissue - Hip Wound Culture - Preliminary Staphylococcus aureus 04/03/20 16:23 Wound - Hip Gram Stain - Final 04/03/20 16:23 Wound - Hip Wound Culture - Final Staphylococcus aureus Laboratory Results 04/04/20 16:40: POC Glucose 167 H 04/04/20 22:01: POC Glucose 177 H 04/05/20 05:52: WBC 8.2, RBC 3.19 L, Hgb 10.1 L, Hct 32.1 L, MCV 100.6 H, MCH 31.7, MCHC 31.5 L, RDW Std Deviation 46.8 H, RDW Coeff of Safia 12.7, Plt Count 355, MPV 8.4 04/05/20 05:52: Sodium 139, Potassium 4.3, Chloride 104, Carbon Dioxide 32.0, Anion Gap 3 L, BUN 21 H, Creatinine 1.06 H, Estim Creat Clear Calc 46.23, Est GFR (MDRD) Af Amer 66, Est GFR (MDRD) Non-Af 54 L, BUN/Creatinine Ratio 19.8, Glucose 137 H, Calcium 8.7 04/05/20 06:27: POC Glucose 167 H 04/05/20 11:27: POC Glucose 197 H Current Medications Acetaminophen (Tylenol) 1,000 mg PO Q8 [facility] Last Admin: 04/05/20 13:23 Dose: 1,000 mg Documented by: Aspirin (Aspirin, Baby) 81 mg PO BIDCM [facility] Last Admin: 04/05/20 10:25 Dose: 81 mg Documented by: Dextrose (D50w Syringe) 0 gm IV X1 PRN; Protocol PRN Reason: Hypoglycemia Enteral Nutritional Formula (Ensure Surgery) 237 ml PO TIDCM [facility] Last Admin: 04/05/20 13:21 Dose: 237 ml Documented by: Famotidine (Pepcid) 20 mg PO DAILY [facility] Last Admin: 04/05/20 10:25 Dose: 20 mg Documented by: Glucagon () 1 mg IM .X1 PRN PRN Reason: Hypoglycemia Vancomycin IV Pharmacy to Dose (1 ea/ Sodium Chloride) 500 mls @ 250 mls/hr IV PRN PRN; Protocol PRN Reason: Rx to Dose Ceftriaxone Sodium 2 gm/ (Sodium Chloride) 50 mls @ 100 mls/hr IV Q24 [facility] Last Infusion: 04/05/20 10:55 Dose: Infused Documented by: Vancomycin HCl () 500 mg in 100 mls @ 100 mls/hr IV Q12H [facility] Last Infusion: 04/05/20 13:31 Dose: 0 mls/hr Documented by: Sodium Chloride () 250 mls @ 15 mls/hr IV .[id number] PRN PRN Reason: Saline Flush Last Infusion: 04/05/20 13:31 Dose: 0 mls/hr Documented by: Sodium Chloride () 250 mls @ 15 mls/hr IV .[id number] PRN PRN Reason: Additional IVPB Infusion Insulin Human Lispro (Humalog Kwikpen (Bkc)) 0 unit SC ACHS [facility]; Protocol Last Admin: 04/05/20 11:31 Dose: 1 units Documented by: Morphine Sulfate () 2 - 4 mg IV Q2H PRN PRN PRN Reason: Pain Score 4-10/10 Morphine Sulfate () 2 - 4 mg IV Q2H PRN PRN PRN Reason: PAIN 4-10/10 Ondansetron HCl (Zofran) 4 mg IV Q8H PRN PRN PRN Reason: NAUSEA Oxycodone HCl (Oxyir) 5 - 10 mg PO Q4H PRN PRN PRN Reason: Pain Score 4-10/10 Last Admin: 04/05/20 10:39 Dose: 5 mg Documented by: Promethazine HCl (Phenergan) 12.5 mg IM Q6H PRN PRN; Protocol PRN Reason: NAUSEA/VOMITING Last Admin: 04/04/20 17:30 Dose: 12.5 mg Documented by: Senna/Docusate Sodium (Senokot-S, Taylor-Colace) 2 tablet PO BID [facility] Last Admin: 04/05/20 10:24 Dose: 2 tablet Documented by: Sodium Chloride () 10 - 40 ml IV UD PRN PRN Reason: SALINE FLUSH Last Admin: 04/05/20 13:28 Dose: 20 ml Documented by: Medical Necessity - Tobacco Use Smoking Status: Never smoker Assessment/Plan All Active Problems 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 1. DVT prophylaxis: Aspirin twice daily 2. Therapy: Weightbearing as tolerated, posterior hip precautions for 3 months. 3. Periprosthetic joint infection: Infectious disease on board. Vanco and cefazolin currently being administered. Continue to monitor renal function and thank trough. PICC line ordered today. 4. Pain control: Continue with current regimen pain well controlled 5. Medical management: Appreciate medical management this patient diabetes is stable. Renal disease is stable. 6. Disposition: Plan is for discharge with IV antibiotics. Patient PICC line ordered today. Antibiotics to be determined by infectious disease. We will plan for discharge once approved by insurance. Likely early next week. [facility] Office:
[2020-04-05 16:20] VITALS: BP 121/70; PULSE 74; RESP 20; TEMP 36.9; O2SAT 95
[2020-04-05 16:25] LABS: Bedside Glucose 133 mg/dL (70-110)
--- NOTE | 2020-04-05 16:31 | NURSING ---
Rn from shot hole shooter here to perform PICC line.
[2020-04-05 22:30] VITALS: BP 134/68; PULSE 86; RESP 18; TEMP 37.3; O2SAT 92
[2020-04-05 23:06] LABS: Bedside Glucose 128 mg/dL (70-110)
[2020-04-06] MEDS: Vancomycin IV 500 MG/100 ML BAG 100 MG IV ×2 (00:46→13:30)
[2020-04-06 01:12] LABS: Vancomycin, Trough Level 15.9 ug/mL (5.0-15.0)
[2020-04-06 02:10] VITALS: BP 134/74; PULSE 81; RESP 16; TEMP 36.9; O2SAT 97
--- NOTE | 2020-04-06 02:44 | PCM.RX.CS ---
Consult Pharmacy has been consulted to manage selected antiobiotic: Vancomycin Type of Consult: Follow-up Suspected Infection: Skin/Soft tissue Prior Doses of Antibiotics Received/Current Regimen: Medications Vancomycin HCl () 500 mg in 100 mls @ 100 mls/hr IV Q12H [facility] Last Admin: 04/06/20 00:46 Dose: 100 mls/hr Labs: Sodium 139 mmol/L (136-145) 04/05/20 05:52 Potassium 4.3 mmol/L (3.5-5.1) 04/05/20 05:52 Chloride 104 mmol/L (98-107) 04/05/20 05:52 Carbon Dioxide 32.0 mmol/L (21.0-32.0) 04/05/20 05:52 Anion Gap 3 (5-15) L 04/05/20 05:52 BUN 21 mg/dL (7-18) H 04/05/20 05:52 Creatinine 1.06 mg/dL (0.55-1.02) H 04/05/20 05:52 Est GFR (MDRD) Af Amer 66 mL/min (>60) 04/05/20 05:52 Est GFR (MDRD) Non-Af 54 mL/min (>60) L 04/05/20 05:52 BUN/Creatinine Ratio 19.8 RATIO (-) 04/05/20 05:52 Glucose 137 mg/dL (74-106) H 04/05/20 05:52 Vancomycin Trough 15.9 ug/mL (5.0-15.0) H 04/06/20 00:26 Microbiology: Microbiology 04/04/20 Unknown Tissue - Hip Gram Stain - Final 04/04/20 Unknown Tissue - Hip Wound Culture - Preliminary No growth-Final to follow 04/04/20 Unknown Tissue - Hip Gram Stain - Final 04/04/20 Unknown Tissue - Hip Wound Culture - Preliminary No growth-Final to follow 04/04/20 Unknown Tissue - Hip Gram Stain - Final 04/04/20 Unknown Tissue - Hip Wound Culture - Preliminary Gram positive organism 04/04/20 Unknown Tissue - Hip Gram Stain - Final 04/04/20 Unknown Tissue - Hip Wound Culture - Preliminary Staphylococcus aureus 04/03/20 16:23 Wound - Hip Gram Stain - Final 04/03/20 16:23 Wound - Hip Wound Culture - Final Staphylococcus aureus Weight used for dosin.6 kg Estimated Creatinine Clearance: 46 Goal Trough: 15-20 mcg/mL Pharmacy Plan for Drug Dosing: Vancomycin trough level of 15.9 was within target range of 15-20. Will continue current dosing and re-draw trough 04/09/20. Pharmacy Service will continue to monitor and adjust dosing as required. Follow-Up Labs: Trough Vancomycin Labs to be done on [date and time ordered]: 04/09/20 @[id number]
[2020-04-06 06:46] LABS: Hematocrit 31.4 % (37-47); Hemoglobin 9.5 g/dL (12.0-15.0); Mean Corp Hgb Conc 30.3 g/dL (32-36); Mean Corpuscular Hgb 30.7 pg (27.0-32.0); Mean Corpuscular Volume 101.6 fL (81-99); Mean Platelet Vol. 8.5 fl (6.2-12.0); Platelet Count 360 K/mm3 (150-450); RBC Distribution Width CV 12.9 % (11.6-14.6); RBC Distribution Width SD 48.7 fl (35.1-43.9); Red Blood Count 3.09 M/mm3 (4.2-5.4); White Blood Count 7.3 K/mm3 (4.4-11.0)
[2020-04-06] MEDS: Acetaminophen 500 MG Tablet 1000 MG PO ×3 (06:49→21:52)
[2020-04-06 07:00] VITALS: O2SAT 91
[2020-04-06 07:05] LABS: Bedside Glucose 103 mg/dL (70-110)
[2020-04-06 08:07] VITALS: BP 147/75; PULSE 74; RESP 16; TEMP 36.8; O2SAT 100
[2020-04-06] MEDS: Aspirin 81 MG TAB.CHEW PO ×2 (08:11→17:18)
[2020-04-06] MEDS: Famotidine 20 MG Tablet PO ×2 (08:11→21:52)
[2020-04-06] MEDS: Ensure Surgery 237 ML LIQUID PO ×3 (08:13→17:18)
[2020-04-06] MEDS: 0.9% Saline Lock 10 ML Syringe IV ×2 (11:45→15:08)
[2020-04-06] MEDS: Pantoprazole Sodium 40 MG Tablet PO (11:45)
[2020-04-06] MEDS: oxyCODONE 5 MG Tablet PO (11:51)
[2020-04-06 12:10] LABS: Bedside Glucose 110 mg/dL (70-110)
--- NOTE | 2020-04-06 12:56 | PN_ITS ---
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 She asked to be restarted on her home med ication for GERD including pepcid BID and PPI qd. Some heartburn with intermittent dry cough this AM. No SOB. No chills/fever. No nausea/vomiting/diarrhea. Pain well controlled. Vitals/I&O's: Vital Signs Temp Pulse Resp BP Pulse Ox 98.2 F 74 16 147/75 H 100 04/06/20 08:07 04/06/20 08:07 04/06/20 08:07 04/06/20 08:07 04/06/20 08:07 Oxygen Flow Rate (L/min) 2 Oxygen Delivery Method Room Air Weight: 173 lb 4.533 oz Body Mass Index (BMI) 27.9 Finger Stick Blood Glucose 167 Intake and Output for Last 24 Hours 04/04/20 04/05/20 04/06/20 23:59 23:59 23:59 Intake Total 2994.5 / 2994.5 1703.50 / 2053.50 900 / 900 Output Total 950 / 950 600 / 600 Balance 2044.5 / 2044.5 1103.50 / 1453.50 900 / 900 General: Alert, Oriented x3, Cooperative HEENT: Atraumatic, PERRLA, EOMI, Normocephalic Neck: Supple, No JVD, Negative Carotid Bruits Lungs: Clear to auscultation, Normal air movement Cardiovascular: Regular rate, No murmurs Abdomen: Bowel Sounds Present, Soft, Non Tender Extremities: No edema, Capillary Refill Less than 3 Seconds Skin: No rashes, No breakdown Musculoskeletal: No Tenderness to Palpation of Joints or Extremities Neurological: Cranial nerves II-XII grossly intact Psych/Mental Status: Normal Affect, Appropriate, Alert and oriented to time, place, person, mood and affect Microbiology Past 72 Hours 04/04/20 Unknown Tissue - Hip Gram Stain - Final 04/04/20 Unknown Tissue - Hip Wound Culture - Preliminary Staphylococcus aureus 04/04/20 Unknown Tissue - Hip Gram Stain - Final 04/04/20 Unknown Tissue - Hip Wound Culture - Preliminary Gram Positive Cocci 04/04/20 Unknown Tissue - Hip Gram Stain - Final 04/04/20 Unknown Tissue - Hip Wound Culture - Preliminary Staphylococcus aureus 04/04/20 Unknown Tissue - Hip Gram Stain - Final 04/04/20 Unknown Tissue - Hip Wound Culture - Final Staphylococcus aureus 04/03/20 16:23 Wound - Hip Gram Stain - Final 04/03/20 16:23 Wound - Hip Wound Culture - Final Staphylococcus aureus Laboratory Results 04/05/20 16:19: POC Glucose 133 H 04/05/20 22:28: POC Glucose 128 H 04/06/20 00:26: Vancomycin Trough 15.9 H 04/06/20 05:26: WBC 7.3, RBC 3.09 L, Hgb 9.5 L, Hct 31.4 L, MCV 101.6 H, MCH 30.7, MCHC 30.3 L, RDW Std Deviation 48.7 H, RDW Coeff of Safia 12.9, Plt Count 360, MPV 8.5 04/06/20 06:48: POC Glucose 103 04/06/20 11:48: POC Glucose 110 Current Medications Acetaminophen (Tylenol) 1,000 mg PO Q8 [facility] Last Admin: 04/06/20 06:49 Dose: 1,000 mg Documented by: Aspirin (Aspirin, Baby) 81 mg PO BIDCM [facility] Last Admin: 04/06/20 08:11 Dose: 81 mg Documented by: Dextrose (D50w Syringe) 0 gm IV X1 PRN; Protocol PRN Reason: Hypoglycemia Enteral Nutritional Formula (Ensure Surgery) 237 ml PO TIDCM [facility] Last Admin: 04/06/20 11:51 Dose: 237 ml Documented by: Famotidine (Pepcid) 20 mg PO BID [facility] Glucagon () 1 mg IM .X1 PRN PRN Reason: Hypoglycemia Vancomycin IV Pharmacy to Dose (1 ea/ Sodium Chloride) 500 mls @ 250 mls/hr IV PRN PRN; Protocol PRN Reason: Rx to Dose Ceftriaxone Sodium 2 gm/ (Sodium Chloride) 50 mls @ 100 mls/hr IV Q24 [facility] Last Infusion: 04/06/20 12:15 Dose: Infused Documented by: Vancomycin HCl () 500 mg in 100 mls @ 100 mls/hr IV Q12H [facility] Last Infusion: 04/06/20 02:05 Dose: Infused Documented by: Sodium Chloride () 250 mls @ 15 mls/hr IV .[id number] PRN PRN Reason: Saline Flush Last Infusion: 04/06/20 12:15 Dose: 15 mls/hr Documented by: Sodium Chloride () 250 mls @ 15 mls/hr IV .[id number] PRN PRN Reason: Additional IVPB Infusion Insulin Human Lispro (Humalog Kwikpen (Bkc)) 0 unit SC [facility]; Protocol Last Admin: 04/06/20 11:49 Dose: Not Given Documented by: Morphine Sulfate () 2 - 4 mg IV Q2H PRN PRN PRN Reason: Pain Score 4-10/10 Morphine Sulfate () 2 - 4 mg IV Q2H PRN PRN PRN Reason: PAIN 4-10/10 Ondansetron HCl (Zofran) 4 mg IV Q8H PRN PRN PRN Reason: NAUSEA Oxycodone HCl (Oxyir) 5 - 10 mg PO Q4H PRN PRN PRN Reason: Pain Score 4-10/10 Last Admin: 04/06/20 11:51 Dose: 5 mg Documented by: Pantoprazole Sodium (Protonix) 40 mg PO DAILY [facility] Last Admin: 04/06/20 11:45 Dose: 40 mg Documented by: Promethazine HCl (Phenergan) 12.5 mg IM Q6H PRN PRN; Protocol PRN Reason: NAUSEA/VOMITING Last Admin: 04/04/20 17:30 Dose: 12.5 mg Documented by: Senna/Docusate Sodium (Senokot-S, Taylor-Colace) 2 tablet PO BID [facility] Last Admin: 04/06/20 08:16 Dose: Not Given Documented by: Sodium Chloride () 10 - 40 ml IV UD PRN PRN Reason: SALINE FLUSH Last Admin: 04/06/20 11:45 Dose: 10 ml Documented by: Medical Necessity - Tobacco Use Smoking Status: Never smoker Assessment/Plan All Active Problems 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 Ortho [address] Dr[address] Chan. Dr. Perez is consulted for infection management. IV abx regimen currently includes Vancomycin and Rocephin. Per ID pt may be started on rifampin for biofilm penetrance. Pt has PICC in place. Plans to do IV abx at home. -No fever/leukocytosis. -Prior Staph cultures showing pansensitive. Repeat surgical cxs showing Staph aureus final sensitivity pending. 2. DMt2 - SSI, hold metformin. last A1C 5.8, well controlled for her age. Glucose gradually improving since surgery. 3. Suspect CKDIII - renal function stable. per prior labs recent BUN 20 , Cr 1.13, GFR 51 CrCl 43. 4. GERD - resume BID pepcid + qd PPI. 5. Macrocytic anemia - Hgb12.1-->9.5. Will repeat CBC in AM. Platelets normal. DVT ppx: asa BID per ortho This patient was seen by Luciano Geiger PA-C under the supervision of Dr. Fabian <Jamie Fabian - Last Filed: 04/06/20 13:54> Vitals/I&O's: Vital Signs Temp Pulse Resp BP Pulse Ox 36.8 C 74 16 147/75 H 100 04/06/20 08:07 04/06/20 08:07 04/06/20 08:07 04/06/20 08:07 04/06/20 08:07 Oxygen Flow Rate (L/min) 2 Oxygen Delivery Method Room Air Weight: 78.6 kg Body Mass Index (BMI) 27.9 Finger Stick Blood Glucose 167 Intake and Output for Last 24 Hours 04/04/20 04/05/20 04/06/20 23:59 23:59 23:59 Intake Total 2994.5 / 2994.5 1703.50 / 2053.50 920 / 920 Output Total 950 / 950 600 / 600 Balance 2044.5 / 2044.5 1103.50 / 1453.50 920 / 920 General: Alert, Cooperative HEENT: Atraumatic, Normocephalic Lungs: Clear to auscultation, Normal air movement Cardiovascular: Regular rate, No murmurs Abdomen: Bowel Sounds Present, Non Tender Skin: No rashes, No breakdown Psych/Mental Status: Normal Affect, Appropriate Microbiology Past 72 Hours 04/03/20 16:23 Wound - Hip Gram Stain - Final 04/03/20 16:23 Wound - Hip Wound Culture - Final Staphylococcus aureus 04/03/20 16:23 Wound - Hip Anaerobic Culture - Final No anaerobic bacteria isolated. 04/04/20 Unknown Tissue - Hip Gram Stain - Final 04/04/20 Unknown Tissue - Hip Wound Culture - Preliminary Staphylococcus aureus 04/04/20 Unknown Tissue - Hip Gram Stain - Final 04/04/20 Unknown Tissue - Hip Wound Culture - Preliminary Gram Positive Cocci 04/04/20 Unknown Tissue - Hip Gram Stain - Final 04/04/20 Unknown Tissue - Hip Wound Culture - Preliminary Staphylococcus aureus 04/04/20 Unknown Tissue - Hip Gram Stain - Final 04/04/20 Unknown Tissue - Hip Wound Culture - Final Staphylococcus aureus Laboratory Results 04/05/20 16:19: POC Glucose 133 H 04/05/20 22:28: POC Glucose 128 H 04/06/20 00:26: Vancomycin Trough 15.9 H 04/06/20 05:26: WBC 7.3, RBC 3.09 L, Hgb 9.5 L, Hct 31.4 L, MCV 101.6 H, MCH 30.7, MCHC 30.3 L, RDW Std Deviation 48.7 H, RDW Coeff of Safia 12.9, Plt Count 360, MPV 8.5 04/06/20 06:48: POC Glucose 103 04/06/20 11:48: POC Glucose 110 Current Medications Acetaminophen (Tylenol) 1,000 mg PO Q8 [facility] Last Admin: 04/06/20 13:31 Dose: 1,000 mg Documented by: Aspirin (Aspirin, Baby) 81 mg PO BIDCM [facility] Last Admin: 04/06/20 08:11 Dose: 81 mg Documented by: Dextrose (D50w Syringe) 0 gm IV X1 PRN; Protocol PRN Reason: Hypoglycemia Enteral Nutritional Formula (Ensure Surgery) 237 ml PO TIDCM [facility] Last Admin: 04/06/20 11:51 Dose: 237 ml Documented by: Famotidine (Pepcid) 20 mg PO BID [facility] Glucagon () 1 mg IM .X1 PRN PRN Reason: Hypoglycemia Vancomycin IV Pharmacy to Dose (1 ea/ Sodium Chloride) 500 mls @ 250 mls/hr IV PRN PRN; Protocol PRN Reason: Rx to Dose Ceftriaxone Sodium 2 gm/ (Sodium Chloride) 50 mls @ 100 mls/hr IV Q24 [facility] Last Infusion: 04/06/20 12:15 Dose: Infused Documented by: Vancomycin HCl () 500 mg in 100 mls @ 100 mls/hr IV Q12H [facility] Last Admin: 04/06/20 13:30 Dose: 100 mls/hr Documented by: Sodium Chloride () 250 mls @ 15 mls/hr IV .[id number] PRN PRN Reason: Saline Flush Last Infusion: 04/06/20 13:35 Dose: 0 mls/hr Documented by: Sodium Chloride () 250 mls @ 15 mls/hr IV .[id number] PRN PRN Reason: Additional IVPB Infusion Insulin Human Lispro (Humalog Kwikpen (Bkc)) 0 unit SC ACHS [facility]; Protocol Last Admin: 04/06/20 11:49 Dose: Not Given Documented by: Morphine Sulfate () 2 - 4 mg IV Q2H PRN PRN PRN Reason: Pain Score 4-10/10 Morphine Sulfate () 2 - 4 mg IV Q2H PRN PRN PRN Reason: PAIN 4-10/10 Ondansetron HCl (Zofran) 4 mg IV Q8H PRN PRN PRN Reason: NAUSEA Oxycodone HCl (Oxyir) 5 - 10 mg PO Q4H PRN PRN PRN Reason: Pain Score 4-10/10 Last Admin: 04/06/20 11:51 Dose: 5 mg Documented by: Pantoprazole Sodium (Protonix) 40 mg PO DAILY [facility] Last Admin: 04/06/20 11:45 Dose: 40 mg Documented by: Promethazine HCl (Phenergan) 12.5 mg IM Q6H PRN PRN; Protocol PRN Reason: NAUSEA/VOMITING Last Admin: 04/04/20 17:30 Dose: 12.5 mg Documented by: Senna/Docusate Sodium (Senokot-S, Taylor-Colace) 2 tablet PO BID [facility] Last Admin: 04/06/20 08:16 Dose: Not Given Documented by: Sodium Chloride () 10 - 40 ml IV UD PRN PRN Reason: SALINE FLUSH Last Admin: 04/06/20 11:45 Dose: 10 ml Documented by: Assessment/Plan Patient seen and examined independently. Data reviewed. I agree with the above note by the physician hotel administrative assistant. 1. Prosthetic joint infection: Status post debridements. Follow-up cultures. Infectious disease following. Currently on vancomycin and ceftriaxone. Discussed with the patient that ultimately will have to wait on the culture results and then insurance approval for likely long-term IV antibiotics. Culture growing out S. aureus. Inpatient E&M: [id number] Subs Hosp L2
[2020-04-06 15:15] VITALS: BP 99/76; PULSE 78; RESP 18; TEMP 36.9; O2SAT 99
--- NOTE | 2020-04-06 15:18 | PCM.PN.ORT ---
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 No longer requiring oxygen satting well on room air. Cultures reviewed MSSA. No major issues overnight. Does have significant discomfort with the thigh-high stockings. - Physical Exam Vitals/I&O's: Vital Signs Temp Pulse Resp BP Pulse Ox 98.5 F 78 18 99/76 99 04/06/20 15:15 04/06/20 15:15 04/06/20 15:15 04/06/20 15:15 04/06/20 15:15 Oxygen Flow Rate (L/min) 2 Oxygen Delivery Method Room Air Weight: 173 lb 4.533 oz Body Mass Index (BMI) 27.9 Finger Stick Blood Glucose 167 Intake and Output for Last 24 Hours 04/04/20 04/05/20 04/06/20 23:59 23:59 23:59 Intake Total 2994.5 / 2994.5 1703.50 / 2053.50 1440 / 1440 Output Total 950 / 950 600 / 600 Balance 2044.5 / 2044.5 1103.50 / 1453.50 1440 / 1440 General: Alert, Oriented x3, Cooperative Extremities: - - Left lower extremity: Dressing is clean dry and intact Sensations intact to light touch saphenous, sural, superficial peroneal, deep peroneal, and tibial distributions Motors intact EHL, DF, PF calves are soft and supple Microbiology Past 72 Hours 04/03/20 16:23 Wound - Hip Gram Stain - Final 04/03/20 16:23 Wound - Hip Wound Culture - Final Staphylococcus aureus 04/03/20 16:23 Wound - Hip Anaerobic Culture - Final No anaerobic bacteria isolated. 04/04/20 Unknown Tissue - Hip Gram Stain - Final 04/04/20 Unknown Tissue - Hip Wound Culture - Preliminary Staphylococcus aureus 04/04/20 Unknown Tissue - Hip Gram Stain - Final 04/04/20 Unknown Tissue - Hip Wound Culture - Preliminary Gram Positive Cocci 04/04/20 Unknown Tissue - Hip Gram Stain - Final 04/04/20 Unknown Tissue - Hip Wound Culture - Preliminary Staphylococcus aureus 04/04/20 Unknown Tissue - Hip Gram Stain - Final 04/04/20 Unknown Tissue - Hip Wound Culture - Final Staphylococcus aureus Laboratory Results 04/05/20 16:19: POC Glucose 133 H 04/05/20 22:28: POC Glucose 128 H 04/06/20 00:26: Vancomycin Trough 15.9 H 04/06/20 05:26: WBC 7.3, RBC 3.09 L, Hgb 9.5 L, Hct 31.4 L, MCV 101.6 H, MCH 30.7, MCHC 30.3 L, RDW Std Deviation 48.7 H, RDW Coeff of Safia 12.9, Plt Count 360, MPV 8.5 04/06/20 06:48: POC Glucose 103 04/06/20 11:48: POC Glucose 110 Current Medications Acetaminophen (Tylenol) 1,000 mg PO Q8 [facility] Last Admin: 04/06/20 13:31 Dose: 1,000 mg Documented by: Aspirin (Aspirin, Baby) 81 mg PO BIDCM [facility] Last Admin: 04/06/20 08:11 Dose: 81 mg Documented by: Dextrose (D50w Syringe) 0 gm IV X1 PRN; Protocol PRN Reason: Hypoglycemia Enteral Nutritional Formula (Ensure Surgery) 237 ml PO TIDCM [facility] Last Admin: 04/06/20 11:51 Dose: 237 ml Documented by: Famotidine (Pepcid) 20 mg PO BID [facility] Glucagon () 1 mg IM .X1 PRN PRN Reason: Hypoglycemia Vancomycin IV Pharmacy to Dose (1 ea/ Sodium Chloride) 500 mls @ 250 mls/hr IV PRN PRN; Protocol PRN Reason: Rx to Dose Ceftriaxone Sodium 2 gm/ (Sodium Chloride) 50 mls @ 100 mls/hr IV Q24 [facility] Last Infusion: 04/06/20 12:15 Dose: Infused Documented by: Vancomycin HCl () 500 mg in 100 mls @ 100 mls/hr IV Q12H [facility] Last Infusion: 04/06/20 14:53 Dose: Infused Documented by: Sodium Chloride () 250 mls @ 15 mls/hr IV .[id number] PRN PRN Reason: Saline Flush Last Infusion: 04/06/20 15:13 Dose: 15 mls/hr Documented by: Sodium Chloride () 250 mls @ 15 mls/hr IV .[id number] PRN PRN Reason: Additional IVPB Infusion Insulin Human Lispro (Humalog Kwikpen (Bkc)) 0 unit SC ACHS [facility]; Protocol Last Admin: 04/06/20 11:49 Dose: Not Given Documented by: Morphine Sulfate () 2 - 4 mg IV Q2H PRN PRN PRN Reason: Pain Score 4-10/10 Morphine Sulfate () 2 - 4 mg IV Q2H PRN PRN PRN Reason: PAIN 4-10/10 Ondansetron HCl (Zofran) 4 mg IV Q8H PRN PRN PRN Reason: NAUSEA Oxycodone HCl (Oxyir) 5 - 10 mg PO Q4H PRN PRN PRN Reason: Pain Score 4-10/10 Last Admin: 04/06/20 11:51 Dose: 5 mg Documented by: Pantoprazole Sodium (Protonix) 40 mg PO DAILY [facility] Last Admin: 04/06/20 11:45 Dose: 40 mg Documented by: Promethazine HCl (Phenergan) 12.5 mg IM Q6H PRN PRN; Protocol PRN Reason: NAUSEA/VOMITING Last Admin: 04/04/20 17:30 Dose: 12.5 mg Documented by: Senna/Docusate Sodium (Senokot-S, Taylor-Colace) 2 tablet PO BID [facility] Last Admin: 04/06/20 08:16 Dose: Not Given Documented by: Sodium Chloride () 10 - 40 ml IV UD PRN PRN Reason: SALINE FLUSH Last Admin: 04/06/20 15:08 Dose: 10 ml Documented by: Medical Necessity - Tobacco Use Smoking Status: Never smoker Assessment/Plan All Active Problems 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 1. DVT prophylaxis: Aspirin twice daily 2. Therapy: Weightbearing as tolerated, posterior hip precautions for 3 months. 3. Periprosthetic joint infection: Infectious disease on board. Vanco and cefazolin currently being administered. Continue to monitor renal function and vanc trough. PICC line in place. BMP ordered for tomorrow. 4. Pain control: Continue with current regimen pain well controlled 5. Medical management: Appreciate medical management this patient diabetes is stable. Renal disease is stable. Check BMP tomorrow 6. Postoperative anemia: Patient's hemoglobin has dropped to 9.5. Directly related to operative blood loss. stable with no associated symptoms. 7. Disposition: Plan is for discharge with IV antibiotics. Patient PICC line placed. Antibiotics to be determined by infectious disease. We will plan for discharge once approved by insurance. Likely early next week. [facility] Office:
--- NOTE | 2020-04-06 15:23 | PCM.DC.THR ---
Discharge Diet: No Restrictions Discharge Activity: May Not Drive - while taking narcotic pain medications. May shower in (days): 1 - With occlusive dressing on. May begin to shower after dressing removed incision is clean dry and intact. Only if incision is dry and without drainage. Do NOT soak/submerge in tub/pool/shannon/stream/hot tub. May resume sexual activity in: 6-8 weeks Weight Bearing Status: Weight bearing as tolerated Additional Activity Instructions:: Wear elastic stockings for 2 weeks. DO NOT use alcohol with narcotic pain medication. DO NOT make important decisions while taking narcotic medication. If you have problems with taking your medication (rash, itching, nausea, etc.) call the office at once. Call your doctor if your incision/area has: Increased Pain/ Swelling, Increased Redness, Foul Smelling Discharge Call your doctor if you observe: Fever of 101 or Higher Remove Dressing in (days):: 3 - if incision is clean dry and intact may leave the wound open to air and continue showering. If there is continued drainage continue daily dry dressing changes and keep incision clean dry and intact until there is no drainage. Additional Dressing/Incision Instructions:: If incision is clean dry and intact may leave the wound open to air and continue showering. If there is continued drainage continue daily dry dressing changes and keep incision clean dry and intact until there is no drainage. Allergies/Adverse Reactions: Allergies No Known Allergies Allergy (Verified 04/04/20 10:40) Medications to take at Discharge Celecoxib [Celebrex] 200 mg PO BID 04/04/20 Diazepam 2 mg PO DAILY 04/04/20 Diazepam [Valium] 5 mg PO QHS 04/04/20 Duloxetine HCl 60 mg PO QHS 04/04/20 Famotidine 20 mg PO BID 04/04/20 Gabapentin 800 mg BID 04/04/20 Lubiprostone [Amitiza] 24 mcg PO BID PRN 04/04/20 Metformin HCl 500 mg PO DAILY 04/04/20 Omeprazole 40 mg DAILY 04/04/20 Zolpidem Tartrate [Ambien] 10 mg PO QHS 04/04/20 Acetaminophen [Tylenol] 1,000 mg PO Q8 tab 04/06/20 Aspirin [Aspirin, Baby] 81 mg PO BIDCM #60 tab.chew 04/06/20 Ensure Surgery 237 ml PO TIDCM liquid 04/06/20 Famotidine [Pepcid] 20 mg PO BID 04/06/20 Oxycodone [Oxyir] 5 - 10 mg PO Q6H PRN PRN 7 Days #60 tab 04/06/20 Senna/Docusate Sodium [Senokot-S] 2 tab PO BID tab 04/06/20 Ampicillin Sodium/Sulbactam Na [Unasyn 3 gm Vial] 3 gm IV Q8H 53 Days #159 vial 04/07/20 Rifampin 300 mg PO BID 112 Days #56 cap 04/07/20 The following prescriptions were given: Aspirin [Aspirin, Baby] 81 mg PO BIDCM #60 tab.chew Transmission Status: Received by [facility] Oxycodone [Oxyir] 5 - 10 mg PO Q6H PRN PRN 7 Days #60 tab PRN Reason: Pain Score 4-10 Transmission Status: Received by [facility] Rifampin 300 mg PO BID 112 Days #56 cap Transmission Status: Received by [facility] Ampicillin Sodium/Sulbactam Na [Unasyn 3 gm Vial] 3 gm IV Q8H 53 Days #159 vial Prescription Printed Primary Care Physician: Paras Oliva DO [Primary Care Provider] - Test Results: Test results from this visit will be discussed in further detail at your follow-up appointment, if applicable. Please Follow Up With: Shayne Bowden PA-C When: 2 weeks postop Please Follow Up With: Paras Perez MD When: 2 weeks postop
[2020-04-06 21:55] VITALS: BP 154/83; PULSE 89; RESP 18; TEMP 37.1; O2SAT 97
[2020-04-06 22:26] LABS: Bedside Glucose 125 mg/dL (70-110)
[2020-04-06] MEDS: Zolpidem Tartrate 5 MG Tablet PO (22:44)
[2020-04-07 00:21] LABS: Bedside Glucose 104 mg/dL (70-110)
[2020-04-07] MEDS: Zolpidem Tartrate 5 MG Tablet PO ×2 (00:43→21:39)
[2020-04-07] MEDS: Vancomycin IV 500 MG/100 ML BAG 100 MG IV ×2 (00:44→13:35)
[2020-04-07 04:05] VITALS: BP 159/99; PULSE 90; RESP 18; TEMP 36.9; O2SAT 99
[2020-04-07 05:40] LABS: Hematocrit 32.8 % (37-47); Hemoglobin 10.1 g/dL (12.0-15.0); Mean Corp Hgb Conc 30.8 g/dL (32-36); Mean Corpuscular Hgb 30.7 pg (27.0-32.0); Mean Corpuscular Volume 99.7 fL (81-99); Mean Platelet Vol. 8.2 fl (6.2-12.0); Platelet Count 359 K/mm3 (150-450); RBC Distribution Width CV 12.9 % (11.6-14.6); RBC Distribution Width SD 47.6 fl (35.1-43.9); Red Blood Count 3.29 M/mm3 (4.2-5.4); White Blood Count 7.6 K/mm3 (4.4-11.0)
[2020-04-07] MEDS: Acetaminophen 500 MG Tablet 1000 MG PO ×3 (06:43→21:39)
[2020-04-07 07:01] LABS: Bedside Glucose 107 mg/dL (70-110)
[2020-04-07 07:02] VITALS: O2SAT 92
[2020-04-07 09:45] VITALS: BP 175/90; PULSE 91; RESP 16; TEMP 36.5; O2SAT 99
--- NOTE | 2020-04-07 09:56 | CASEMGMT ---
GUALBERTO RAMSEY Note: Patient will need to dc on Home IV antibiotics. Alereon with insurance reviewed with patient. She would like [facility] as she had them prior, and also would like [facility]. Call to [facility] @ [facility] and the earlies they can take patient is Wed am for start of care, so patient would need to stay and receive Tuesday mercy dose prior to discharge. The patient wanted to return home sooner, but GUALBERTO RAMSEY explained she needs to receive IV antibiotics @ [facility] until [facility] can start care. GUALBERTO RAMSEY also called 4 other agencies that either could not provide the care, or could not provide the home healthcare any earlier than [facility]. Patient is aware and agreeable with plan of care. Referral Faxed to: [facility] PH: FX: [phone] [facility] PH: FX: Kassandra STATONN GUALBERTO ACM
[2020-04-07] MEDS: Famotidine 20 MG Tablet PO ×2 (10:05→21:39)
[2020-04-07] MEDS: Aspirin 81 MG TAB.CHEW PO (10:05)
[2020-04-07] MEDS: 0.9% Saline Lock 10 ML Syringe IV ×3 (10:08→13:35)
[2020-04-07] MEDS: Pantoprazole Sodium 40 MG Tablet PO (10:10)
--- NOTE | 2020-04-07 10:35 | CASEMGMT ---
GUALBERTO RAMSEY Note: Patient will need to dc on Home IV antibiotics. Tracab with insurance reviewed with patient. She would like [facility] as she had them prior, and also would like [facility]. Call to [facility] @ [facility] and the earlies they can take patient is Wed am for start of care, so patient would need to stay and receive Tuesday mercy dose prior to discharge. The patient wanted to return home sooner, but GUALBERTO RAMSEY explained she needs to receive IV antibiotics @ [facility] until [facility] can start care. GUALBERTO RAMSEY also called 4 other agencies that either could not provide the care, or could not provide the home healthcare any earlier than [facility]. Patient is aware and agreeable with plan of care. Referral Faxed to: [facility] PH: FX: [phone] [facility] PH: FX: Kassandra STATONN GUALBERTO ACM
--- NOTE | 2020-04-07 10:52 | PN_ITS ---
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) Reason for Visit: Prosthetic joint infection Subjective: Patient is a 69-year-old lady with history of left hip hemiarthroplasty admitted with pain and swelling and purulent discharge from the hip incision and assessment of prosthetic joint infection made admitted to regular nursing floor for further management Objective: GENERAL: cooperative HEENT: Atraumatic; EYES; Anicteric, Normal Conjunctiva NECK; supple, normal thyroid, RESPIRATORY: Diminished to auscultation CARDIOVASCULAR: Regular S1 S2, GI: soft, normoactive bowel sounds, : No Renal angle tenderness; EXTREMITIES: No edema, no clubbing, MUSCULOSKELETAL: no muscle waisting NEURO: Awake; no lateralizing signs. SKIN: No Rash PSYCH; Flat affect Vitals/I&O's: Vital Signs Temp Pulse Resp BP Pulse Ox 98.4 F 90 18 159/99 H 92 04/07/20 04:05 04/07/20 04:05 04/07/20 04:05 04/07/20 04:05 04/07/20 07:02 Oxygen Flow Rate (L/min) 2 Oxygen Delivery Method Room Air Weight: 78.6 kg Body Mass Index (BMI) 27.9 Finger Stick Blood Glucose 167 Intake and Output for Last 24 Hours 04/05/20 04/06/20 04/07/20 23:59 23:59 23:59 Intake Total 1703.50 / 2053.50 1774.25 / 1774.25 300 / 300 Output Total 600 / 600 Balance 1103.50 / 1453.50 1774.25 / 1774.25 300 / 300 Microbiology Past 72 Hours 04/04/20 Unknown Tissue - Hip Gram Stain - Final 04/04/20 Unknown Tissue - Hip Wound Culture - Final Staphylococcus aureus 04/04/20 Unknown Tissue - Hip Gram Stain - Final 04/04/20 Unknown Tissue - Hip Wound Culture - Final Staphylococcus aureus 04/04/20 Unknown Tissue - Hip Gram Stain - Final 04/04/20 Unknown Tissue - Hip Wound Culture - Final Enterococcus faecium 04/03/20 16:23 Wound - Hip Gram Stain - Final 04/03/20 16:23 Wound - Hip Wound Culture - Final Staphylococcus aureus 04/03/20 16:23 Wound - Hip Anaerobic Culture - Final No anaerobic bacteria isolated. 04/04/20 Unknown Tissue - Hip Gram Stain - Final 04/04/20 Unknown Tissue - Hip Wound Culture - Final Staphylococcus aureus Laboratory Results 04/06/20 11:48: POC Glucose 110 04/06/20 17:11: POC Glucose 104 04/06/20 21:51: POC Glucose 125 H 04/07/20 05:34: WBC 7.6, RBC 3.29 L, Hgb 10.1 L, Hct 32.8 L, MCV 99.7 H, MCH 30.7, MCHC 30.8 L, RDW Std Deviation 47.6 H, RDW Coeff of Safia 12.9, Plt Count 359, MPV 8.2 04/07/20 06:43: POC Glucose 107 Current Medications Acetaminophen (Tylenol) 1,000 mg PO Q8 [facility] Last Admin: 04/07/20 06:43 Dose: 1,000 mg Documented by: Aspirin (Aspirin, Baby) 81 mg PO BIDCM [facility] Last Admin: 04/07/20 10:05 Dose: 81 mg Documented by: Dextrose (D50w Syringe) 0 gm IV X1 PRN; Protocol PRN Reason: Hypoglycemia Enteral Nutritional Formula (Ensure Surgery) 237 ml PO TIDCM [facility] Last Admin: 04/07/20 10:07 Dose: Not Given Documented by: Famotidine (Pepcid) 20 mg PO BID [facility] Last Admin: 04/07/20 10:05 Dose: 20 mg Documented by: Glucagon () 1 mg IM .X1 PRN PRN Reason: Hypoglycemia Vancomycin IV Pharmacy to Dose (1 ea/ Sodium Chloride) 500 mls @ 250 mls/hr IV PRN PRN; Protocol PRN Reason: Rx to Dose Ceftriaxone Sodium 2 gm/ (Sodium Chloride) 50 mls @ 100 mls/hr IV Q24 [facility] Last Admin: 04/07/20 10:05 Dose: 100 mls/hr Documented by: Vancomycin HCl () 500 mg in 100 mls @ 100 mls/hr IV Q12H [facility] Last Infusion: 04/07/20 01:55 Dose: Infused Documented by: Sodium Chloride () 250 mls @ 15 mls/hr IV .[id number] PRN PRN Reason: Saline Flush Last Infusion: 04/06/20 17:30 Dose: Infused Documented by: Sodium Chloride () 250 mls @ 15 mls/hr IV .[id number] PRN PRN Reason: Additional IVPB Infusion Insulin Human Lispro (Humalog Kwikpen (Bkc)) 0 unit SC ACHS [facility]; Protocol Last Admin: 04/07/20 06:44 Dose: Not Given Documented by: Morphine Sulfate () 2 - 4 mg IV Q2H PRN PRN PRN Reason: Pain Score 4-10/10 Morphine Sulfate () 2 - 4 mg IV Q2H PRN PRN PRN Reason: PAIN 4-10/10 Ondansetron HCl (Zofran) 4 mg IV Q8H PRN PRN PRN Reason: NAUSEA Oxycodone HCl (Oxyir) 5 - 10 mg PO Q4H PRN PRN PRN Reason: Pain Score 4-10/10 Last Admin: 04/06/20 11:51 Dose: 5 mg Documented by: Pantoprazole Sodium (Protonix) 40 mg PO DAILY [facility] Last Admin: 04/07/20 10:10 Dose: 40 mg Documented by: Promethazine HCl (Phenergan) 12.5 mg IM Q6H PRN PRN; Protocol PRN Reason: NAUSEA/VOMITING Last Admin: 04/04/20 17:30 Dose: 12.5 mg Documented by: Senna/Docusate Sodium (Senokot-S, Taylor-Colace) 2 tablet PO BID [facility] Last Admin: 04/07/20 10:06 Dose: Not Given Documented by: Sodium Chloride () 10 - 40 ml IV UD PRN PRN Reason: SALINE FLUSH Last Admin: 04/07/20 10:08 Dose: 10 ml Documented by: Zolpidem Tartrate (Ambien (Generic)) 5 mg PO QHS [facility] Last Admin: 04/07/20 00:43 Dose: 5 mg Documented by: STROKE Vital Signs/Narrative: Vital Signs Pulse Ox 04/07/20 07:02 92 Medical Necessity - Tobacco Use Smoking Status: Never smoker Assessment/Plan All Active Problems 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 Prosthetic left hip joint infection ?Patient underwent debridement and hemiarthroplasty revision by Dr. Chan on 04/04/2020 cultures obtained came back positive for enterococcus faecium and Staphylococcus aureus patient remains on vancomycin as well as Rocephin 2. Diabetes mellitus type II - patient's oral hypoglycemics held. Placed on Accu-Cheks a.c. and at bedtime and covered with sliding scale insulin 3. GERD ?Patient on Pepcid 4. Anemia - Secondary to chronic disorder and acute blood loss anemia following surgery monitoring H&H and transfuse if patient becomes symptomatic or hemoglobin falls below 7 5. DVT prophylaxis ?As per orthopedic surgery aspirin 325 mg p.o. twice daily Advance planning; did discuss with the patient and family regarding advanced directives as well as CODE STATUS. Did explain the various scenarios involved ( FULL CODE, DNR CCA, DNR CCA with no intubation, and DNR CC and what each meant) patient elected full code with CPR and intubation if indicated. Order was placed. Time spent on discussion 18 minutes. Inpatient E&M: 63965 Subs Hosp L2 Procedures: 09817 Advncd Care Plan 30 Min
[2020-04-07] MEDS: Insulin Lispro 100 UNIT/ML INSULN.PEN SC (11:22)
[2020-04-07 11:46] LABS: Bedside Glucose 162 mg/dL (70-110)
[2020-04-07 13:35] VITALS: BP 159/87; PULSE 90; RESP 16; TEMP 36.6; O2SAT 100
[2020-04-07] MEDS: Ondansetron 4 MG/2 ML Vial IV (13:35)
--- NOTE | 2020-04-07 14:20 | CASEMGMT ---
Addendum entered by Chava Alonso 04/07/20 15:19: Call to [facility], spoke with Maribell- requested to see if [facility] could start tomorrow afternoon. They cannot staff this and start of care has to be Wed @ 8 am. Nurse is aware. Kassandra KAM Addendum entered by Chava Alonso 04/07/20 15:05: Call received from [facility]. Cost for patient will be $30/day after insurance, and they will call patient in room to discuss payment. GUALBERTO RAMSEY let patient and her know of cost per day and that Infusion company will call to room to discuss payment options. They are agreeable to this plan. Kassandra KAM Original Note: GUALBERTO RAMSEY Note: Script for Unasyn Q8hrs received from Dr. Perez. Script faxed to [facility]. Kim Teague Nurse updated on change and that plan is to have patient leave after her evening dose of Unasyn on Tuesday04/07/20. Kassandra KAM
--- NOTE | 2020-04-07 15:42 | CASEMGMT ---
GUALBERTO RAMSEY Note: Call from Cassandra @ [facility]. She stated the cost for infusion is $30/day and patient's is concerned they cannot afford. GUALBERTO RAMSEY spoke with patient re: possible SNF for IV antibiotics-they both declined. GUALBERTO RAMSEY faxed referral to [facility] requesting cost analysis. If they can provide more cost effective, then the patient is willing to use this company. [facility] to return call when case is assigned. Kassandra STATONN RN ACM
--- NOTE | 2020-04-07 15:48 | PCM.PN.ID ---
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) Subjective: Pain ok, some nausea yesterday, no fever - Physical Exam Vitals/I&O's: Vital Signs Temp Pulse Resp BP Pulse Ox 97.7 F L 91 16 175/90 H 99 04/07/20 09:45 04/07/20 09:45 04/07/20 09:45 04/07/20 09:45 04/07/20 09:45 Oxygen Flow Rate (L/min) 2 Oxygen Delivery Method Room Air Weight: 78.6 kg Body Mass Index (BMI) 27.9 Finger Stick Blood Glucose 167 Intake and Output for Last 24 Hours 04/05/20 04/06/20 04/07/20 23:59 23:59 23:59 Intake Total 1703.50 / 2053.50 1774.25 / 1774.25 800 / 800 Output Total 600 / 600 Balance 1103.50 / 1453.50 1774.25 / 1774.25 800 / 800 General: Alert, Cooperative, No apparent distress Lungs: Clear to auscultation, Normal air movement Cardiovascular: Regular rate, Regular Rhythm Abdomen: Soft, Non Tender, Non-Distended Skin: No rashes Microbiology Past 72 Hours 04/04/20 Unknown Tissue - Hip Gram Stain - Final 04/04/20 Unknown Tissue - Hip Wound Culture - Final Staphylococcus aureus 04/04/20 Unknown Tissue - Hip Anaerobic Culture - Preliminary No growth in 48 hours. 04/04/20 Unknown Tissue - Hip Gram Stain - Final 04/04/20 Unknown Tissue - Hip Wound Culture - Final Staphylococcus aureus 04/04/20 Unknown Tissue - Hip Anaerobic Culture - Preliminary No growth in 48 hours. 04/04/20 Unknown Tissue - Hip Gram Stain - Final 04/04/20 Unknown Tissue - Hip Wound Culture - Final Enterococcus faecium 04/04/20 Unknown Tissue - Hip Anaerobic Culture - Preliminary No growth in 48 hours. 04/04/20 Unknown Tissue - Hip Gram Stain - Final 04/04/20 Unknown Tissue - Hip Wound Culture - Final Staphylococcus aureus 04/04/20 Unknown Tissue - Hip Anaerobic Culture - Preliminary No growth in 48 hours. 04/03/20 16:23 Wound - Hip Gram Stain - Final 04/03/20 16:23 Wound - Hip Wound Culture - Final Staphylococcus aureus 04/03/20 16:23 Wound - Hip Anaerobic Culture - Final No anaerobic bacteria isolated. Laboratory Results 04/06/20 17:11: POC Glucose 104 04/06/20 21:51: POC Glucose 125 H 04/07/20 05:34: WBC 7.6, RBC 3.29 L, Hgb 10.1 L, Hct 32.8 L, MCV 99.7 H, MCH 30.7, MCHC 30.8 L, RDW Std Deviation 47.6 H, RDW Coeff of Safia 12.9, Plt Count 359, MPV 8.2 04/07/20 06:43: POC Glucose 107 04/07/20 11:21: POC Glucose 162 H Current Medications Acetaminophen (Tylenol) 1,000 mg PO Q8 [facility] Last Admin: 04/07/20 14:20 Dose: 1,000 mg Documented by: Aspirin (Aspirin, Baby) 81 mg PO BIDCM [facility] Last Admin: 04/07/20 10:05 Dose: 81 mg Documented by: Dextrose (D50w Syringe) 0 gm IV X1 PRN; Protocol PRN Reason: Hypoglycemia Enteral Nutritional Formula (Ensure Surgery) 237 ml PO TIDCM [facility] Last Admin: 04/07/20 11:22 Dose: Not Given Documented by: Famotidine (Pepcid) 20 mg PO BID [facility] Last Admin: 04/07/20 10:05 Dose: 20 mg Documented by: Glucagon () 1 mg IM .X1 PRN PRN Reason: Hypoglycemia Sodium Chloride () 250 mls @ 15 mls/hr IV .[id number] PRN PRN Reason: Saline Flush Last Infusion: 04/06/20 17:30 Dose: Infused Documented by: Sodium Chloride () 250 mls @ 15 mls/hr IV .[id number] PRN PRN Reason: Additional IVPB Infusion Ampicillin Sodium/Sulbactam (Sodium 3 gm/ Sodium Chloride) 112 mls @ 150 mls/hr IV Q8 [facility] Last Admin: 04/07/20 15:15 Dose: 150 mls/hr Documented by: Insulin Human Lispro (Humalog Kwikpen (Bkc)) 0 unit SC ACHS [facility]; Protocol Last Admin: 04/07/20 11:22 Dose: 1 units Documented by: Morphine Sulfate () 2 - 4 mg IV Q2H PRN PRN PRN Reason: Pain Score 4-10/10 Morphine Sulfate () 2 - 4 mg IV Q2H PRN PRN PRN Reason: PAIN 4-10/10 Ondansetron HCl (Zofran) 4 mg IV Q8H PRN PRN PRN Reason: NAUSEA Last Admin: 04/07/20 13:35 Dose: 4 mg Documented by: Oxycodone HCl (Oxyir) 5 - 10 mg PO Q4H PRN PRN PRN Reason: Pain Score 4-10/10 Last Admin: 04/06/20 11:51 Dose: 5 mg Documented by: Pantoprazole Sodium (Protonix) 40 mg PO DAILY [facility] Last Admin: 04/07/20 10:10 Dose: 40 mg Documented by: Promethazine HCl (Phenergan) 12.5 mg IM Q6H PRN PRN; Protocol PRN Reason: NAUSEA/VOMITING Last Admin: 04/04/20 17:30 Dose: 12.5 mg Documented by: Rifampin (Rifadin) 300 mg PO BID [facility] Senna/Docusate Sodium (Senokot-S, Taylor-Colace) 2 tablet PO BID [facility] Last Admin: 04/07/20 10:06 Dose: Not Given Documented by: Sodium Chloride () 10 - 40 ml IV UD PRN PRN Reason: SALINE FLUSH Last Admin: 04/07/20 13:35 Dose: 10 ml Documented by: Zolpidem Tartrate (Ambien (Generic)) 5 mg PO QHS [facility] Last Admin: 04/07/20 00:43 Dose: 5 mg Documented by: Medical Necessity - Tobacco Use Smoking Status: Never smoker Route of nutrition/ use of supplements: [] Nutritional Intake: [] IV Site: [] Jacome Catheter: [] - Assessment/Plan Antibiotics: [] Assessment/Plan: [] MSSA L hip PJI - now s/p OR 03/05/[address] Chan for synovectomy and revision of femoral head component. Surg cx with mssa and single cx with enterococcus. Will narrow abx to unasyn and add rifampin. Plan on 8 week course, stop date 05/30/20. Weekly bmp, cbc, LFT, and esr. Will follow, d/w case maker, wrote rx, ID followup with me in 2 week
--- NOTE | 2020-04-07 15:50 | PN.ORTHO_ITS ---
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 Patient denies chest pain, shortness of breath, calf pain, nausea vomiting. Patient has no other complaints, states she is ready for discharge home Objective: Dressings clean dry intact. Vital signs labs were reviewed noted medical record. There is no erythema surrounding the incision. Patient has good motion of the hip without pain or instability. Neurovascular she is otherwise intact. Patient has no respiratory distress, speaking in full sentences. Negative signs or symptoms of DVT. - Physical Exam Vitals/I&O's: Vital Signs Temp Pulse Resp BP Pulse Ox 97.7 F L 91 16 175/90 H 99 04/07/20 09:45 04/07/20 09:45 04/07/20 09:45 04/07/20 09:45 04/07/20 09:45 Oxygen Flow Rate (L/min) 2 Oxygen Delivery Method Room Air Weight: 78.6 kg Body Mass Index (BMI) 27.9 Finger Stick Blood Glucose 167 Intake and Output for Last 24 Hours 04/05/20 04/06/20 04/07/20 23:59 23:59 23:59 Intake Total 1703.50 / 2053.50 1774.25 / 1774.25 800 / 800 Output Total 600 / 600 Balance 1103.50 / 1453.50 1774.25 / 1774.25 800 / 800 General: Alert, Oriented x3, Cooperative HEENT: PERRLA Oral: Moist Mucosa Neurological: Cranial nerves II-XII grossly intact Psych/Mental Status: Normal Affect, Alert and oriented to time, place, person, mood and affect Microbiology Past 72 Hours 04/04/20 Unknown Tissue - Hip Gram Stain - Final 04/04/20 Unknown Tissue - Hip Wound Culture - Final Staphylococcus aureus 04/04/20 Unknown Tissue - Hip Anaerobic Culture - Preliminary No growth in 48 hours. 04/04/20 Unknown Tissue - Hip Gram Stain - Final 04/04/20 Unknown Tissue - Hip Wound Culture - Final Staphylococcus aureus 04/04/20 Unknown Tissue - Hip Anaerobic Culture - Preliminary No growth in 48 hours. 04/04/20 Unknown Tissue - Hip Gram Stain - Final 04/04/20 Unknown Tissue - Hip Wound Culture - Final Enterococcus faecium 04/04/20 Unknown Tissue - Hip Anaerobic Culture - Preliminary No growth in 48 hours. 04/04/20 Unknown Tissue - Hip Gram Stain - Final 04/04/20 Unknown Tissue - Hip Wound Culture - Final Staphylococcus aureus 04/04/20 Unknown Tissue - Hip Anaerobic Culture - Preliminary No growth in 48 hours. 04/03/20 16:23 Wound - Hip Gram Stain - Final 04/03/20 16:23 Wound - Hip Wound Culture - Final Staphylococcus aureus 04/03/20 16:23 Wound - Hip Anaerobic Culture - Final No anaerobic bacteria isolated. Laboratory Results 04/06/20 17:11: POC Glucose 104 04/06/20 21:51: POC Glucose 125 H 04/07/20 05:34: WBC 7.6, RBC 3.29 L, Hgb 10.1 L, Hct 32.8 L, MCV 99.7 H, MCH 30.7, MCHC 30.8 L, RDW Std Deviation 47.6 H, RDW Coeff of Safia 12.9, Plt Count 359, MPV 8.2 04/07/20 06:43: POC Glucose 107 04/07/20 11:21: POC Glucose 162 H Current Medications Acetaminophen (Tylenol) 1,000 mg PO Q8 [facility] Last Admin: 04/07/20 14:20 Dose: 1,000 mg Documented by: Aspirin (Aspirin, Baby) 81 mg PO BIDCM [facility] Last Admin: 04/07/20 10:05 Dose: 81 mg Documented by: Dextrose (D50w Syringe) 0 gm IV X1 PRN; Protocol PRN Reason: Hypoglycemia Enteral Nutritional Formula (Ensure Surgery) 237 ml PO TIDCM [facility] Last Admin: 04/07/20 11:22 Dose: Not Given Documented by: Famotidine (Pepcid) 20 mg PO BID [facility] Last Admin: 04/07/20 10:05 Dose: 20 mg Documented by: Glucagon () 1 mg IM .X1 PRN PRN Reason: Hypoglycemia Sodium Chloride () 250 mls @ 15 mls/hr IV .[id number] PRN PRN Reason: Saline Flush Last Infusion: 04/06/20 17:30 Dose: Infused Documented by: Sodium Chloride () 250 mls @ 15 mls/hr IV .[id number] PRN PRN Reason: Additional IVPB Infusion Ampicillin Sodium/Sulbactam (Sodium 3 gm/ Sodium Chloride) 112 mls @ 150 mls/hr IV Q8 [facility] Last Admin: 04/07/20 15:15 Dose: 150 mls/hr Documented by: Insulin Human Lispro (Humalog Kwikpen (Bkc)) 0 unit SC ACHS [facility]; Protocol Last Admin: 04/07/20 11:22 Dose: 1 units Documented by: Morphine Sulfate () 2 - 4 mg IV Q2H PRN PRN PRN Reason: Pain Score 4-10/10 Morphine Sulfate () 2 - 4 mg IV Q2H PRN PRN PRN Reason: PAIN 4-10/10 Ondansetron HCl (Zofran) 4 mg IV Q8H PRN PRN PRN Reason: NAUSEA Last Admin: 04/07/20 13:35 Dose: 4 mg Documented by: Oxycodone HCl (Oxyir) 5 - 10 mg PO Q4H PRN PRN PRN Reason: Pain Score 4-10/10 Last Admin: 04/06/20 11:51 Dose: 5 mg Documented by: Pantoprazole Sodium (Protonix) 40 mg PO DAILY [facility] Last Admin: 04/07/20 10:10 Dose: 40 mg Documented by: Promethazine HCl (Phenergan) 12.5 mg IM Q6H PRN PRN; Protocol PRN Reason: NAUSEA/VOMITING Last Admin: 04/04/20 17:30 Dose: 12.5 mg Documented by: Rifampin (Rifadin) 300 mg PO BID [facility] Senna/Docusate Sodium (Senokot-S, Taylor-Colace) 2 tablet PO BID [facility] Last Admin: 04/07/20 10:06 Dose: Not Given Documented by: Sodium Chloride () 10 - 40 ml IV UD PRN PRN Reason: SALINE FLUSH Last Admin: 04/07/20 13:35 Dose: 10 ml Documented by: Zolpidem Tartrate (Ambien (Generic)) 5 mg PO QHS [facility] Last Admin: 04/07/20 00:43 Dose: 5 mg Documented by: Medical Necessity - Tobacco Use Smoking Status: Never smoker Assessment/Plan All Active Problems 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 Plan 1. Continue all pain medications as prescribed 2. Continue physical therapy weight-bear as tolerated with walker. 3. Continue antibiotics as directed by I&D. 4. Continue anticoagulation as prescribed. 5. Encourage incentive spirometry.
[2020-04-07] MEDS: proMETHazine 25 MG/ML Syringe 12.5 MG IM (17:43)
[2020-04-07 17:55] LABS: Bedside Glucose 132 mg/dL (70-110)
[2020-04-07 20:42] VITALS: BP 163/76; PULSE 90; RESP 16; TEMP 36.9; O2SAT 98
[2020-04-07] MEDS: rifAMPin 300 MG Capsule PO (21:39)
[2020-04-07 21:51] LABS: Bedside Glucose 127 mg/dL (70-110)
[2020-04-08 02:44] VITALS: BP 164/89; PULSE 84; RESP 20; TEMP 36.8; O2SAT 97
[2020-04-08 06:02] LABS: AST(SGOT) 16 U/L (15-37); Alanine Aminotransfer ALT/SGPT 38 U/L (13-56); Albumin, Serum 2.9 g/dL (3.2-5.0); Alkaline Phosphatase 201 U/L (45-117); Anion Gap 3 (5-15); BUN 16 mg/dL (7-18); BUN/Creat Ratio 19.2 RATIO (10-20); Bilirubin, Direct 0.19 mg/dL (0.00-0.30); Calcium,Total 8.4 mg/dL (8.5-10.1); Chloride 107 mmol/L (98-107); Creatinine, Serum 0.83 mg/dL (0.55-1.02); EST Glomerular Filtration Rate 72 mL/min (>60); Est Glom Filt Rate - Afr Amer 87 mL/min (>60); Estimated Creatinine Clearance 59.04 ml/min; Globulin 3.6 g/dL (2.2-4.2); Glucose 112 mg/dL (74-106); Potassium 3.2 mmol/L (3.5-5.1); Protein, Total 6.5 g/dL (6.4-8.2); Sodium Level 141 mmol/L (136-145)
[2020-04-08] MEDS: Acetaminophen 500 MG Tablet 1000 MG PO ×2 (06:39→14:07)
[2020-04-08 06:51] LABS: Bedside Glucose 110 mg/dL (70-110)
--- NOTE | 2020-04-08 07:15 | PCM.PN.HOSP ---
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) Reason for Visit: Prosthetic joint infection Hypokalemia Subjective: Patient antibiotic therapy adjusted by ID plans for patient to be discharged home with home health after receiving this evening's dose of Unasyn.diagnostic data simple potassium of 3.1 which is been corrected per protocol Objective: GENERAL: cooperative HEENT: Atraumatic; EYES; Anicteric, Normal Conjunctiva NECK; supple, normal thyroid, RESPIRATORY: Diminished to auscultation CARDIOVASCULAR: Regular S1 S2, GI: soft, normoactive bowel sounds, : No Renal angle tenderness; EXTREMITIES: No edema, no clubbing, MUSCULOSKELETAL: no muscle waisting NEURO: Awake; no lateralizing signs. SKIN: No Rash PSYCH; Flat affect Vitals/I&O's: Vital Signs Temp Pulse Resp BP Pulse Ox 98.2 F 84 20 H 164/89 H 97 04/08/20 02:44 04/08/20 02:44 04/08/20 02:44 04/08/20 02:44 04/08/20 02:44 Oxygen Flow Rate (L/min) 2 Oxygen Delivery Method Room Air Weight: 78.6 kg Body Mass Index (BMI) 27.9 Finger Stick Blood Glucose 167 Intake and Output for Last 24 Hours 04/06/20 04/07/20 04/08/20 23:59 23:59 23:59 Intake Total 1774.25 / 1774.25 1324 / 1474 200 / 200 Balance 1774.25 / 1774.25 1324 / 1474 200 / 200 Microbiology Past 72 Hours 04/04/20 Unknown Tissue - Hip Gram Stain - Final 04/04/20 Unknown Tissue - Hip Wound Culture - Final Staphylococcus aureus 04/04/20 Unknown Tissue - Hip Anaerobic Culture - Preliminary No growth in 48 hours. 04/04/20 Unknown Tissue - Hip Gram Stain - Final 04/04/20 Unknown Tissue - Hip Wound Culture - Final Staphylococcus aureus 04/04/20 Unknown Tissue - Hip Anaerobic Culture - Preliminary No growth in 48 hours. 04/04/20 Unknown Tissue - Hip Gram Stain - Final 04/04/20 Unknown Tissue - Hip Wound Culture - Final Enterococcus faecium 04/04/20 Unknown Tissue - Hip Anaerobic Culture - Preliminary No growth in 48 hours. 04/04/20 Unknown Tissue - Hip Gram Stain - Final 04/04/20 Unknown Tissue - Hip Wound Culture - Final Staphylococcus aureus 04/04/20 Unknown Tissue - Hip Anaerobic Culture - Preliminary No growth in 48 hours. 04/03/20 16:23 Wound - Hip Gram Stain - Final 04/03/20 16:23 Wound - Hip Wound Culture - Final Staphylococcus aureus 04/03/20 16:23 Wound - Hip Anaerobic Culture - Final No anaerobic bacteria isolated. Laboratory Results 04/07/20 11:21: POC Glucose 162 H 04/07/20 17:46: POC Glucose 132 H 04/07/20 21:43: POC Glucose 127 H 04/08/20 05:24: Sodium 141, Potassium 3.2 L, Chloride 107, Carbon Dioxide 31.0, Anion Gap 3 L, BUN 16, Creatinine 0.83, Estim Creat Clear Calc 59.04, Est GFR (MDRD) Af Amer 87, Est GFR (MDRD) Non-Af 72, BUN/Creatinine Ratio 19.2, Glucose 112 H, Calcium 8.4 L, Total Bilirubin 0.70, Direct Bilirubin 0.19, AST 16, ALT 38, Alkaline Phosphatase 201 H, Total Protein 6.5, Albumin 2.9 L, Globulin 3.6 04/08/20 06:42: POC Glucose 110 Current Medications Acetaminophen (Tylenol) 1,000 mg PO Q8 [facility] Last Admin: 04/08/20 06:39 Dose: 1,000 mg Documented by: Aspirin (Aspirin, Baby) 81 mg PO BIDCM [facility] Last Admin: 04/07/20 18:33 Dose: Not Given Documented by: Dextrose (D50w Syringe) 0 gm IV X1 PRN; Protocol PRN Reason: Hypoglycemia Enteral Nutritional Formula (Ensure Surgery) 237 ml PO TIDCM [facility] Last Admin: 04/07/20 16:57 Dose: Not Given Documented by: Famotidine (Pepcid) 20 mg PO BID [facility] Last Admin: 04/07/20 21:39 Dose: 20 mg Documented by: Glucagon () 1 mg IM .X1 PRN PRN Reason: Hypoglycemia Sodium Chloride () 250 mls @ 15 mls/hr IV .[id number] PRN PRN Reason: Saline Flush Last Infusion: 04/06/20 17:30 Dose: Infused Documented by: Sodium Chloride () 250 mls @ 15 mls/hr IV .[id number] PRN PRN Reason: Additional IVPB Infusion Ampicillin Sodium/Sulbactam (Sodium 3 gm/ Sodium Chloride) 112 mls @ 150 mls/hr IV Q8 [facility] Last Admin: 04/08/20 06:38 Dose: 150 mls/hr Documented by: Insulin Human Lispro (Humalog Kwikpen (Bkc)) 0 unit SC ACHS [facility]; Protocol Last Admin: 04/08/20 06:43 Dose: Not Given Documented by: Morphine Sulfate () 2 - 4 mg IV Q2H PRN PRN PRN Reason: Pain Score 4-10/10 Morphine Sulfate () 2 - 4 mg IV Q2H PRN PRN PRN Reason: PAIN 4-10/10 Ondansetron HCl (Zofran) 4 mg IV Q8H PRN PRN PRN Reason: NAUSEA Last Admin: 04/07/20 13:35 Dose: 4 mg Documented by: Oxycodone HCl (Oxyir) 5 - 10 mg PO Q4H PRN PRN PRN Reason: Pain Score 4-10/10 Last Admin: 04/06/20 11:51 Dose: 5 mg Documented by: Pantoprazole Sodium (Protonix) 40 mg PO DAILY [facility] Last Admin: 04/07/20 10:10 Dose: 40 mg Documented by: Promethazine HCl (Phenergan) 12.5 mg IM Q6H PRN PRN; Protocol PRN Reason: NAUSEA/VOMITING Last Admin: 04/07/20 17:43 Dose: 12.5 mg Documented by: Rifampin (Rifadin) 300 mg PO BID [facility] Last Admin: 04/07/20 21:39 Dose: 300 mg Documented by: Senna/Docusate Sodium (Senokot-S, Taylor-Colace) 2 tablet PO BID [facility] Last Admin: 04/07/20 21:44 Dose: Not Given Documented by: Sodium Chloride () 10 - 40 ml IV UD PRN PRN Reason: SALINE FLUSH Last Admin: 04/07/20 13:35 Dose: 10 ml Documented by: Zolpidem Tartrate (Ambien (Generic)) 5 mg PO QHS [facility] Last Admin: 04/07/20 21:39 Dose: 5 mg Documented by: Medical Necessity - Tobacco Use Smoking Status: Never smoker Assessment/Plan All Active Problems 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 Prosthetic left hip joint infection ?Patient underwent debridement and hemiarthroplasty revision by Dr. Chan on 04/04/2020 cultures obtained came back positive for enterococcus faecium and Staphylococcus aureus patient remains on vancomycin as well as Rocephin -04/08/2020 antibiotic therapy narrowed to Unasyn and rifampin per ID 2. Diabetes mellitus type II - patient's oral hypoglycemics held. Placed on Accu-Cheks a.c. and at bedtime and covered with sliding scale insulin 3. GERD ?Patient on Pepcid 4. Anemia - Secondary to chronic disorder and acute blood loss anemia following surgery monitoring H&H and transfuse if patient becomes symptomatic or hemoglobin falls below 7 5. DVT prophylaxis ?As per orthopedic surgery aspirin 325 mg p.o. twice daily 6. Hypokalemia ?Corrected per protocol Inpatient E&M: [id number] [facility] Hosp L2
--- NOTE | 2020-04-08 07:38 | PN.ORTHO_ITS ---
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 Easy to awake. No other complaints. Ready for discharge home. Objective: Dressings clean dry intact. Vital signs labs reviewed noted in the medical records. No signs or symptoms of DVT. Patient is afebrile. Wound in the left hip is nonerythematous. - Physical Exam Vitals/I&O's: Vital Signs Temp Pulse Resp BP Pulse Ox 98.2 F 84 20 H 164/89 H 97 04/08/20 02:44 04/08/20 02:44 04/08/20 02:44 04/08/20 02:44 04/08/20 02:44 Oxygen Flow Rate (L/min) 2 Oxygen Delivery Method Room Air Weight: 78.6 kg Body Mass Index (BMI) 27.9 Finger Stick Blood Glucose 167 Intake and Output for Last 24 Hours 04/06/20 04/07/20 04/08/20 23:59 23:59 23:59 Intake Total 1774.25 / 1774.25 1324 / 1474 200 / 200 Balance 1774.25 / 1774.25 1324 / 1474 200 / 200 General: Alert, Oriented x3, Cooperative HEENT: PERRLA Oral: Moist Mucosa Neurological: Cranial nerves II-XII grossly intact Psych/Mental Status: Normal Affect, Alert and oriented to time, place, person, mood and affect Microbiology Past 72 Hours 04/04/20 Unknown Tissue - Hip Gram Stain - Final 04/04/20 Unknown Tissue - Hip Wound Culture - Final Staphylococcus aureus 04/04/20 Unknown Tissue - Hip Anaerobic Culture - Preliminary No growth in 48 hours. 04/04/20 Unknown Tissue - Hip Gram Stain - Final 04/04/20 Unknown Tissue - Hip Wound Culture - Final Staphylococcus aureus 04/04/20 Unknown Tissue - Hip Anaerobic Culture - Preliminary No growth in 48 hours. 04/04/20 Unknown Tissue - Hip Gram Stain - Final 04/04/20 Unknown Tissue - Hip Wound Culture - Final Enterococcus faecium 04/04/20 Unknown Tissue - Hip Anaerobic Culture - Preliminary No growth in 48 hours. 04/04/20 Unknown Tissue - Hip Gram Stain - Final 04/04/20 Unknown Tissue - Hip Wound Culture - Final Staphylococcus aureus 04/04/20 Unknown Tissue - Hip Anaerobic Culture - Preliminary No growth in 48 hours. 04/03/20 16:23 Wound - Hip Gram Stain - Final 04/03/20 16:23 Wound - Hip Wound Culture - Final Staphylococcus aureus 04/03/20 16:23 Wound - Hip Anaerobic Culture - Final No anaerobic bacteria isolated. Laboratory Results 04/07/20 11:21: POC Glucose 162 H 04/07/20 17:46: POC Glucose 132 H 04/07/20 21:43: POC Glucose 127 H 04/08/20 05:24: Sodium 141, Potassium 3.2 L, Chloride 107, Carbon Dioxide 31.0, Anion Gap 3 L, BUN 16, Creatinine 0.83, Estim Creat Clear Calc 59.04, Est GFR (MDRD) Af Amer 87, Est GFR (MDRD) Non-Af 72, BUN/Creatinine Ratio 19.2, Glucose 112 H, Calcium 8.4 L, Total Bilirubin 0.70, Direct Bilirubin 0.19, AST 16, ALT 38, Alkaline Phosphatase 201 H, Total Protein 6.5, Albumin 2.9 L, Globulin 3.6 04/08/20 06:42: POC Glucose 110 Current Medications Acetaminophen (Tylenol) 1,000 mg PO Q8 [facility] Last Admin: 04/08/20 06:39 Dose: 1,000 mg Documented by: Aspirin (Aspirin, Baby) 81 mg PO BIDCM [facility] Last Admin: 04/07/20 18:33 Dose: Not Given Documented by: Dextrose (D50w Syringe) 0 gm IV X1 PRN; Protocol PRN Reason: Hypoglycemia Enteral Nutritional Formula (Ensure Surgery) 237 ml PO TIDCM [facility] Last Admin: 04/07/20 16:57 Dose: Not Given Documented by: Famotidine (Pepcid) 20 mg PO BID [facility] Last Admin: 04/07/20 21:39 Dose: 20 mg Documented by: Glucagon () 1 mg IM .X1 PRN PRN Reason: Hypoglycemia Sodium Chloride () 250 mls @ 15 mls/hr IV .[id number] PRN PRN Reason: Saline Flush Last Infusion: 04/06/20 17:30 Dose: Infused Documented by: Sodium Chloride () 250 mls @ 15 mls/hr IV .[id number] PRN PRN Reason: Additional IVPB Infusion Ampicillin Sodium/Sulbactam (Sodium 3 gm/ Sodium Chloride) 112 mls @ 150 mls/hr IV Q8 [facility] Last Admin: 04/08/20 06:38 Dose: 150 mls/hr Documented by: Insulin Human Lispro (Humalog Kwikpen (Bkc)) 0 unit SC ACHS [facility]; Protocol Last Admin: 04/08/20 06:43 Dose: Not Given Documented by: Morphine Sulfate () 2 - 4 mg IV Q2H PRN PRN PRN Reason: Pain Score 4-10/10 Morphine Sulfate () 2 - 4 mg IV Q2H PRN PRN PRN Reason: PAIN 4-10/10 Ondansetron HCl (Zofran) 4 mg IV Q8H PRN PRN PRN Reason: NAUSEA Last Admin: 04/07/20 13:35 Dose: 4 mg Documented by: Oxycodone HCl (Oxyir) 5 - 10 mg PO Q4H PRN PRN PRN Reason: Pain Score 4-10/10 Last Admin: 04/06/20 11:51 Dose: 5 mg Documented by: Pantoprazole Sodium (Protonix) 40 mg PO DAILY [facility] Last Admin: 04/07/20 10:10 Dose: 40 mg Documented by: Promethazine HCl (Phenergan) 12.5 mg IM Q6H PRN PRN; Protocol PRN Reason: NAUSEA/VOMITING Last Admin: 04/07/20 17:43 Dose: 12.5 mg Documented by: Rifampin (Rifadin) 300 mg PO BID [facility] Last Admin: 04/07/20 21:39 Dose: 300 mg Documented by: Senna/Docusate Sodium (Senokot-S, Taylor-Colace) 2 tablet PO BID [facility] Last Admin: 04/07/20 21:44 Dose: Not Given Documented by: Sodium Chloride () 10 - 40 ml IV UD PRN PRN Reason: SALINE FLUSH Last Admin: 04/07/20 13:35 Dose: 10 ml Documented by: Zolpidem Tartrate (Ambien (Generic)) 5 mg PO QHS [facility] Last Admin: 04/07/20 21:39 Dose: 5 mg Documented by: Medical Necessity - Tobacco Use Smoking Status: Never smoker Assessment/Plan All Active Problems 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 Plan 1. Continue all pain medications as prescribed 2. Continue physical therapy weight-bear as tolerated with walker. 3. Continue antibiotics as directed by I&D. 4. Continue anticoagulation as prescribed. 5. Encourage incentive spirometry. 6. Discharge home today when clear with ID and medicine. 1. Follow-up with Dr. Chan in 7 to 10 days, call office for appointment
[2020-04-08] MEDS: Aspirin 81 MG TAB.CHEW PO ×2 (09:02→17:24)
[2020-04-08] MEDS: Pantoprazole Sodium 40 MG Tablet PO (09:02)
[2020-04-08] MEDS: Famotidine 20 MG Tablet PO (09:02)
[2020-04-08] MEDS: rifAMPin 300 MG Capsule PO (09:02)
--- NOTE | 2020-04-08 09:51 | NURSING ---
Issue: Plan for DC Home today with [facility] on IV Abx Unasyn 3gm Q8hr/PICC line through May 30, 2020. 0922- Called [facility] , to f/u regarding total cost for IV abx and supplies. S/w Niki and states it would cost $336 for one week. 0940- This fiction and nonfiction writer prose discussed with patient at bedside above and aware choice for [facility] is cheaper. Patient agreeable with [facility] for plan of care at DC. Inquired about cost assistance per discussion with MD. Explained checking into applying to [facility] and aware will have NICKIE Ornelas discuss further. Patient states that she has her and son at home to assist her with IV Abx infusion/needs. 0998- Called [facility] [phone], s/w Fernando and made aware patient is agreeable to utilize their company for IV Abx and HHC. States will call the patient to verify and will call this fiction and nonfiction writer prose back to confirm. Lolly Evans RNCM
--- NOTE | 2020-04-08 09:57 | PCM.PN.ID ---
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 No fever. - Physical Exam Vitals/I&O's: Vital Signs Temp Pulse Resp BP Pulse Ox 98.2 F 84 20 H 164/89 H 97 04/08/20 02:44 04/08/20 02:44 04/08/20 02:44 04/08/20 02:44 04/08/20 02:44 Oxygen Flow Rate (L/min) 2 Oxygen Delivery Method Room Air Weight: 78.6 kg Body Mass Index (BMI) 27.9 Finger Stick Blood Glucose 167 Intake and Output for Last 24 Hours 04/06/20 04/07/20 04/08/20 23:59 23:59 23:59 Intake Total 1774.25 / 1774.25 1324 / 1474 312 / 312 Balance 1774.25 / 1774.25 1324 / 1474 312 / 312 General: Alert, Cooperative, No apparent distress Lungs: Clear to auscultation, Normal air movement Cardiovascular: Regular rate, Regular Rhythm Abdomen: Soft, Non Tender, Non-Distended Skin: No rashes Microbiology Past 72 Hours 04/04/20 Unknown Tissue - Hip Gram Stain - Final 04/04/20 Unknown Tissue - Hip Wound Culture - Final Staphylococcus aureus 04/04/20 Unknown Tissue - Hip Anaerobic Culture - Preliminary No growth in 48 hours. 04/04/20 Unknown Tissue - Hip Gram Stain - Final 04/04/20 Unknown Tissue - Hip Wound Culture - Final Staphylococcus aureus 04/04/20 Unknown Tissue - Hip Anaerobic Culture - Preliminary No growth in 48 hours. 04/04/20 Unknown Tissue - Hip Gram Stain - Final 04/04/20 Unknown Tissue - Hip Wound Culture - Final Enterococcus faecium 04/04/20 Unknown Tissue - Hip Anaerobic Culture - Preliminary No growth in 48 hours. 04/04/20 Unknown Tissue - Hip Gram Stain - Final 04/04/20 Unknown Tissue - Hip Wound Culture - Final Staphylococcus aureus 04/04/20 Unknown Tissue - Hip Anaerobic Culture - Preliminary No growth in 48 hours. 04/03/20 16:23 Wound - Hip Gram Stain - Final 04/03/20 16:23 Wound - Hip Wound Culture - Final Staphylococcus aureus 04/03/20 16:23 Wound - Hip Anaerobic Culture - Final No anaerobic bacteria isolated. Laboratory Results 04/07/20 11:21: POC Glucose 162 H 04/07/20 17:46: POC Glucose 132 H 04/07/20 21:43: POC Glucose 127 H 04/08/20 05:24: Sodium 141, Potassium 3.2 L, Chloride 107, Carbon Dioxide 31.0, Anion Gap 3 L, BUN 16, Creatinine 0.83, Estim Creat Clear Calc 59.04, Est GFR (MDRD) Af Amer 87, Est GFR (MDRD) Non-Af 72, BUN/Creatinine Ratio 19.2, Glucose 112 H, Calcium 8.4 L, Total Bilirubin 0.70, Direct Bilirubin 0.19, AST 16, ALT 38, Alkaline Phosphatase 201 H, Total Protein 6.5, Albumin 2.9 L, Globulin 3.6 04/08/20 06:42: POC Glucose 110 Current Medications Acetaminophen (Tylenol) 1,000 mg PO Q8 [facility] Last Admin: 04/08/20 06:39 Dose: 1,000 mg Documented by: Aspirin (Aspirin, Baby) 81 mg PO BIDCM [facility] Last Admin: 04/08/20 09:02 Dose: 81 mg Documented by: Dextrose (D50w Syringe) 0 gm IV X1 PRN; Protocol PRN Reason: Hypoglycemia Enteral Nutritional Formula (Ensure Surgery) 237 ml PO TIDCM [facility] Last Admin: 04/08/20 09:01 Dose: Not Given Documented by: Famotidine (Pepcid) 20 mg PO BID [facility] Last Admin: 04/08/20 09:02 Dose: 20 mg Documented by: Glucagon () 1 mg IM .X1 PRN PRN Reason: Hypoglycemia Sodium Chloride () 250 mls @ 15 mls/hr IV .[id number] PRN PRN Reason: Saline Flush Last Admin: 04/08/20 09:01 Dose: 15 mls/hr Documented by: Sodium Chloride () 250 mls @ 15 mls/hr IV .[id number] PRN PRN Reason: Additional IVPB Infusion Ampicillin Sodium/Sulbactam (Sodium 3 gm/ Sodium Chloride) 112 mls @ 150 mls/hr IV Q8 [facility] Last Infusion: 04/08/20 07:23 Dose: Infused Documented by: Insulin Human Lispro (Humalog Kwikpen (Bkc)) 0 unit SC ACHS [facility]; Protocol Last Admin: 04/08/20 06:43 Dose: Not Given Documented by: Morphine Sulfate () 2 - 4 mg IV Q2H PRN PRN PRN Reason: Pain Score 4-10/10 Morphine Sulfate () 2 - 4 mg IV Q2H PRN PRN PRN Reason: PAIN 4-10/10 Ondansetron HCl (Zofran) 4 mg IV Q8H PRN PRN PRN Reason: NAUSEA Last Admin: 04/07/20 13:35 Dose: 4 mg Documented by: Oxycodone HCl (Oxyir) 5 - 10 mg PO Q4H PRN PRN PRN Reason: Pain Score 4-10/10 Last Admin: 04/06/20 11:51 Dose: 5 mg Documented by: Pantoprazole Sodium (Protonix) 40 mg PO DAILY [facility] Last Admin: 04/08/20 09:02 Dose: 40 mg Documented by: Potassium Ch[facility] ([facility]Dur[facility] Promethazine HCl (Phenergan) 12.5 mg IM Q6H PRN PRN; Protocol PRN Reason: NAUSEA/VOMITING Last Admin: 04/07/20 17:43 Dose: 12.5 mg Documented by: Rifampin (Rifadin) 300 mg PO BID [facility] Last Admin: 04/08/20 09:02 Dose: 300 mg Documented by: Senna/Docusate Sodium (Senokot-S, Taylor-Colace) 2 tablet PO BID [facility] Last Admin: 04/08/20 09:03 Dose: Not Given Documented by: Sodium Chloride () 10 - 40 ml IV UD PRN PRN Reason: SALINE FLUSH Last Admin: 04/07/20 13:35 Dose: 10 ml Documented by: Zolpidem Tartrate (Ambien (Generic)) 5 mg PO QHS [facility] Last Admin: 04/07/20 21:39 Dose: 5 mg Documented by: Medical Necessity - Tobacco Use Smoking Status: Never smoker Route of nutrition/ use of supplements: [] Nutritional Intake: [] IV Site: [] Jacome Catheter: [] - Assessment/Plan Antibiotics: [] Assessment/Plan: [] MSSA L hip PJI - now s/p OR 03/05/[address] Chan for synovectomy and revision of femoral head component. Surg cx with mssa and single cx with enterococcus. On unasyn and rifampin. Plan on 8 week course, stop date 05/30/20, then one year total with po abx. Weekly bmp, cbc, LFT, and esr. Will follow, d/w case briefer, ID followup with me in 2 week
[2020-04-08 10:00] VITALS: BP 150/84; PULSE 95; RESP 16; TEMP 36.5; O2SAT 97
[2020-04-08 12:00] LABS: Bedside Glucose 121 mg/dL (70-110)
--- NOTE | 2020-04-08 12:26 | NURSING ---
1213- S/w both Cassandra and Fernando at [facility] and states that they s/w patient and and everything is good to go. Aware of plan per primary nurse to infuse last abx dose at 2000 today prior to DC home and per pharmacy can go max 12 hours until next infusion. [place] to visit patient tomorrow morning at 0800 to start care. Lolly Evans RNCM
[2020-04-08 14:10] VITALS: BP 165/84; PULSE 77; RESP 16; TEMP 36.4; O2SAT 100
[2020-04-08 17:21] VITALS: O2SAT 99
[2020-04-08] MEDS: Insulin Lispro 100 UNIT/ML INSULN.PEN SC (17:23)
[2020-04-08 17:50] LABS: Bedside Glucose 152 mg/dL (70-110)
[2020-04-08 19:52] VITALS: BP 154/82; PULSE 80; RESP 16; TEMP 36.6; O2SAT 100
[2020-04-08 20:50] VITALS: BP 157/86; PULSE 89; RESP 17; TEMP 36.9; O2SAT 97
[2020-04-08] MEDS: 0.9% Saline Lock 10 ML Syringe IV (20:51)
--- NOTE | 2020-04-10 09:10 | CASEMGMT ---
Addendum entered by Chava Alonso 04/10/20 12:26: Progress note addendum by Dr. Kerr and DC instructions faxed to [facility]. Kassandra KAM Original Note: GUALBERTO RAMSEY Note: call received from [facility] that they need DC Summary and face to face faxed to them. Call to ortho office, updated staff and requested Face to Face be documented on DC Summary for 04/08/20, or for Emeka to update Face to Face and need for HHC on his note for 04/08/20. Call back received from staff stating GUALBERTO RAMSEY needs to put order in. Let them know, that order for HHC is completed, but face to face documentation for home health care is needed by physician. Kassandra CHAPMANM
== END 2020-04-08 21:08 | disposition home health service (06) | DRG 467 ==
LOC: SDC 14:53 → MS3 14:53
PROVIDERS: Anesthesiology; Internal Medicine Infectious Disease; Admitting Provider Specialist; PCP Preventive Medicine Occupational Medicine; Referring Provider Specialist; Visit Provider Internal Medicine
PROC: 0SRS0JZ Replacement of Left Hip Joint, Femoral Surface with Synthetic Substitute, Open Approach (ICD-10-PCS; CPT 27134; principal; 2020-04-04 12:05)
DX: T84.52XA Infection and inflammatory reaction due to internal left hip prosthesis, initial encounter (principal); M00.052 Staphylococcal arthritis, left hip; D62 Acute posthemorrhagic anemia; Y83.1 Surgical operation with implant of artificial internal device as the cause of abnormal reaction of the patient, or of later complication, without mention of misadventure at the time of the procedure; Z23 Encounter for immunization; M19.90 Unspecified osteoarthritis, unspecified site; F41.9 Anxiety disorder, unspecified; K21.9 Gastro-esophageal reflux disease without esophagitis; E11.22 Type 2 diabetes mellitus with diabetic chronic kidney disease; N18.30 Chronic kidney disease, stage 3 unspecified; B95.61 Methicillin susceptible Staphylococcus aureus infection as the cause of diseases classified elsewhere; E87.6 Hypokalemia
CPT/HCPCS: 36415; 36569; 73502; 80048; 80076; 80202; 82962; 83036; 83735; 85025; 85027; 85652; 86140; 87015; 87070; 87075; 87077; 87101; 87102; 87116; 87186; 87205; 87206; 93005; 97116; 97162; 97166; 97530; 97535; 99251; C1776; G0008; J7050; J7120; 90686; A4216; G0463; J0295; J0696; J2405

== ENCOUNTER → 2022-01-25 | Outpatient (CLI) | payer MEDICARE, SELFPAY ==
[2022-01-25 17:21] LABS: Absolute Lymphocyte Count 2.19 X10^3/uL (0.83-4.51); Absolute Neutrophil Count 3.3 X10^3/uL (2.0-7.7); Basophil# 0.02 X10^3/uL; Basophil% 0.3 % (0-1); Eosinophil# 0.22 X10^3/uL; Eosinophils% 3.5 % (0-5); Hematocrit 38.5 % (37-47); Hemoglobin 12.4 g/dL (12.0-15.0); Lymphocyte # 2.19 X10^3/ul (0.83-4.51); Mean Corp Hgb Conc 32.2 g/dL (32-36); Mean Corpuscular Hgb 31.3 pg (27.0-32.0); Mean Corpuscular Volume 97.2 fL (81-99); Mean Platelet Vol. 8.3 fl (6.2-12.0); Monocyte# 0.54 X10^3/uL; Monocyte% 8.6 % (0-10); NRBC Flagged by Analyzer 0 % (0-5); Neutrophil # 3.28 X10^3/uL (2.7-7.7); Neutrophil % 52.4 % (47-70); Platelet Count 259 K/mm3 (150-450); RBC Distribution Width CV 12.7 % (11.6-14.6); RBC Distribution Width SD 45.4 fl (35.1-43.9); Red Blood Count 3.96 M/mm3 (4.2-5.4); White Blood Count 6.3 K/mm3 (4.4-11.0)
[2022-01-25 17:33] LABS: Erythrocyte Sedimentation Rate 15 mm/hr (0-30)
[2022-01-25 18:34] LABS: CRP < 2.90 mg/L (0.0-3.0)
== END | disposition home or self-care (01) ==
LOC: LAB 16:41
PROVIDERS: PCP Preventive Medicine Occupational Medicine; Referring Provider Physician Assistant Surgical; Visit Provider Physician Assistant Surgical
DX: Z96.642 Presence of left artificial hip joint (principal)
CPT/HCPCS: 36415; 85025; 85652; 86140